=== PATIENT | female | born 1950 | race Caucasian/White ===

== ENCOUNTER 2021-04-03 00:21 | Day surgery (SDC) | payer MEDICARE, SELFPAY ==
[2021-03-21 09:37] VITALS: BMI 38.4
[2021-04-03] VITALS (8 sets, daily range): BP systolic 139–163; BP diastolic 72–89; PULSE 61–72; RESP 8–16; TEMP 36.1–36.2; O2SAT 92–100
[2021-04-03] MEDS: LACTATED RINGERS 1,000 ML 30 ML IV CONT (10:14)
--- NOTE | 2021-04-03 10:15 | WPDANESEPPF ---
Anes - Initial Pre Proc Eval Procedure: Operation Date: 04/03/21 11:30 Proposed Procedures p Bilateral Breast Reduction - Michael Vela MD Date/Time: 04/03/21 10:15 Surgeon: Michael Vela MD Pre Op Diagnosis: macromastia Patient Data Age: 71 Gender: F Height: 1.5 m Weight: 87.6 kg Last Vital Signs Temp 36.2 C L 04/03/21 09:53 Pulse 61 04/03/21 09:53 Resp 8 L 04/03/21 09:53 BP 148/72 H 04/03/21 09:53 Pulse Ox 100 04/03/21 09:53 Allergies Allergy/AdvReac Type Severity Reaction Status Date / Time Sulfa (Sulfonamide Allergy Severe BODY RASH Verified 04/03/21 10:01 Antibiotics) ibuprofen Allergy Mild ASTHMATIC Verified 04/03/21 10:01 REACTION prednisone Allergy Rash Verified 04/03/21 10:01 propoxyphene Allergy Gastrointestinal Verified 04/03/21 10:01 Upset salicylates Allergy Rash Verified 04/03/21 10:01 Home Medications Medication Instructions Recorded Confirmed Type acyclovir 800 mg tablet 800 mg PO DAILY 03/05/21 04/03/21 History aspirin 325 mg tablet 325 mg PO DAILY 03/05/21 04/03/21 History atorvastatin 10 mg tablet 10 mg PO DAILY 03/05/21 04/03/21 History bupropion HCl 75 mg tablet 75 mg PO BID 03/05/21 04/03/21 History duloxetine 60 mg capsule,delayed 60 mg PO DAILY 03/05/21 04/03/21 History release esomeprazole magnesium 20 mg 20 mg PO BID 03/05/21 04/03/21 History capsule,delayed release fluticasone furoate 100 1 inh INHALATION QAM 03/05/21 04/03/21 History mcg-vilanterol 25 mcg/dose inhalation powder fluticasone propionate 50 1 spray INTRANASAL DAILY 03/05/21 04/03/21 History mcg/actuation nasal spray,suspension metoprolol succinate 50 mg 50 mg PO BID 03/05/21 04/03/21 History tablet,extended release 24 hr tizanidine 4 mg capsule 4 mg PO QHS PRN 03/05/21 04/03/21 History tramadol 50 mg tablet 50 mg PO HS PRN 03/05/21 04/03/21 History trazodone 50 mg tablet 50 mg PO QHS PRN 03/05/21 04/03/21 History docusate sodium 100 mg capsule 100 mg PO BID #14 cap 03/19/21 04/03/21 Rx hydrocodone 5 mg-acetaminophen 325 1 tablet PO Q6H PRN #15 tablet 03/19/21 04/03/21 Rx mg tablet ondansetron HCl 4 mg tablet 4 mg PO Q6H PRN #30 tablet 03/19/21 04/03/21 Rx albuterol sulfate 2 puff INHALATION Q4H PRN 03/21/21 04/03/21 History diphenhydramine HCl [Benadryl 25 mg PO QID PRN 03/21/21 04/03/21 History Allergy] Laboratory Tests 04/03/21 10:10 Cotinine Pending Patient hx anesthesia problems: post op nausea/vomiting Family hx anesthesia problems: none Results Review: All pre-operative results and documents have been reviewed as part of the pre-operative evaluation. [facility] Past Medical History Medical History Acute arthritis Asthma Chronic back pain COPD (chronic obstructive pulmonary disease) History of Mohs micrographic surgery for skin cancer Hyperlipidemia Hypertension Surgical History Surgical History History of appendectomy History of bilateral carpal tunnel release History of foot surgery History of hip surgery History of implanted electronic device stimulation device in spine and hip - NO MRI History of knee replacement History of partial hysterectomy History of repair of rotator cuff History of tonsillectomy Family History Family History Father Heart disease Mother Hypertension Social History Social History Smoking status: Never smoker Second hand tobacco smoke exposure: No Alcohol intake: never Substance use: never Substance use type: does not use Living arrangements: with family Spiritual care concerns: No Anes - Eval Final PreProcedure Day of Procedure 04/03/21 10:15 Patient weight: obese Heart: regular rate and rhythm Lungs: decreased breat
[2021-04-03] MEDS: SCOPOLAMINE 1.5 MG PATCH TRANSDERM (10:21)
[2021-04-03 11:28] LABS: Urine Cotinine NEGATIVE
--- NOTE | 2021-04-03 11:49 | WPDHPUPDATE1 ---
History and Physical Update Update Date/Time: 04/03/21 11:49 History and Physical has been reviewed, including an updated exam of the patient. There are NO changes in the patient's condition. Risks, benefits, and alternatives have been discussed and questions answered. Patient agrees to proceed with procedure.
[2021-04-03] MEDS: ceFAZolin 2 GM/D5W 50 ML 2 GM/50 ML BAG IVPB (12:26)
[2021-04-03] MEDS: TRANEXAMIC ACID 1,000MG/ISO100 1,000 MG/100 ML BAG 200 MG IVPB (12:38)
[2021-04-03] MEDS: LACTATED RINGERS IRRIG 1,000 ML, LIDOCAINE HCL 1% LOCAL INJ 50 ML, EPINEPHrine HCL INJ ... INFILTRATE (12:57)
--- NOTE | 2021-04-03 13:57 | SUR.OPER ---
bilateral breast tissue given to zay in pathology by [facility] at [id number]
--- NOTE | 2021-04-03 14:35 | W.PM.PROC2 ---
Procedure Note - Detailed Date of Procedure 04/03/21 Pre-op Diagnosis macromastia Post-op Diagnosis same Procedure Performed Bilateral reduction mammaplasty Surgeon Michael Vela MD Anesthesia general Findings Inverted T Free nipple graft Tissue removed: Right - 1133 grams Left - 1374 grams Description of Procedure She is here today for bilateral breast reduction. Previously and again today the risks, benefits, alternatives were discussed in extensive detail. I wanted her to be very realistic about the risks involved as well as expectations. She would like to proceed with free nipple graft which has previously and again today been discussed. We discussed aftercare and what to monitor for. She understands we can never guarantee final breast size and there will always be asymmetry. I was very upfront and honest about the risks of sensation change and even nipple loss (). Made sure answered all of her questions to her satisfaction today and consent was obtained. She was marked in the preoperative holding area with their verification. The patient was taken to the operating room placed supine on the operating table. Anesthesia was provided by anesthesiology. She was prepped and draped in a standard sterile fashion. A surgical time-out was taken. Stab incisions were made and I tumessed with a tumescent solution. I marked out the nipple-areolar complex at 42 mm. This was excised deep to the dermis. A 15 blade was used to make the incisions and I then removed the inferior portion of the breast as well as the central keel to get shape based on preoperative planning. At this point copiously irrigated with saline solution and verified a strict hemostasis. I reapproximated the pillars using a 2-0 PDS. I tailor tacked the breast into place with lorraine. She was placed in a sitting position. I verified the nipple-areolar complex position based on preoperative markings, intraoperative measurements, and observation which were in full agreement. This nipple-areolar complex was marked at 42 mm in size. I closed IMF deep with 1 strattafix. I closed the vertical incision with 3-0 Monocryl in the IMF with 3-0 stratafix. Then everything was closed using a running subcuticular 4-0 Monocryl followed by Steri-Strips. I de-epithelialized the planned NAC location. Nipple-areolar complex was de-fatted and placed as a free nipple graft with 5-0 chromic and a xeroform cotton tie over bolster with 3-0 Nylon. A dressing was placed followed by surgical bra. Patient was awoke and taken to PACU without difficulty. All instrument sponge counts were correct at the end of the case. Estimated Blood Loss 30 Drains No Packing Yes (bolster dressing) Pathology yes (breast tissue) Complications No immediate complications Condition stable Disposition PACU
== END 2021-04-03 16:25 | disposition home or self-care (01) ==
PROVIDERS: PCP Internal Medicine; Visit Provider Surgery Plastic and Reconstructive Surgery
PROC: 0HBV0ZZ Excision of Bilateral Breast, Open Approach (ICD-10-PCS; CPT 19318; principal; 2021-04-03 11:30)
DX: N62 Hypertrophy of breast (principal); N60.32 Fibrosclerosis of left breast; N60.31 Fibrosclerosis of right breast; L82.1 Other seborrheic keratosis; M54.9 Dorsalgia, unspecified; G89.29 Other chronic pain; J44.9 Chronic obstructive pulmonary disease, unspecified; I10 Essential (primary) hypertension; E78.5 Hyperlipidemia, unspecified; Z79.51 Long term (current) use of inhaled steroids; Z79.899 Other long term (current) drug therapy; E66.9 Obesity, unspecified; Z68.39 Body mass index [BMI] 39.0-39.9, adult
CPT/HCPCS: 19318; 80307; 88305; A9270; J0171; J0690; J1170; J2250; J3010; J7120

== ENCOUNTER 2025-01-26 14:14 | Outpatient (CLI) | payer MEDICARE, SELFPAY ==
--- OUTSIDE RECORDS SUMMARY | 2025-01-26 14:21 | XMS_ITS | Encounter Summary ---
Author Organization [facility] Address [address] [place] [address] Care Team Providers Care Interactive Art Director Name Role Phone Unavailable Primary Care Provider Unavailabl e Encounter Details Date Type Department Care Team ( Contact Info) Description 01/26/2025 1:30 PM CDT Office Visit [facility] Oncology and Hematology - [place] [address] [facility] [address] [place] [address] Darell Gibbs MD [address] [facility] [address] [place] [address] Chronic anemia (Primary Dx) Social History Tobacco Use Types Packs/Day Years Used Date Smoking Tobacco: Never Smokeless Tobacco: Never Alcohol Use Standard Drinks/Week Comments Yes 0 (1 standard drink = 0.6 oz pur e alcohol) Socially Comments Unknown Sex and Gender Information Value Date Recorded Sex Assigned at Not on file Legal Sex Female 2:14 PM CDT Gender Identity Not on file Sexual Orientation Not on file documented as of this encounter Last Filed Vital Signs Vital Sign Reading Time Taken Comments Blood Pressure 99/57 01/26/2025 1:30 PM CDT Pulse 75 01/26/2025 1:30 PM CDT Temperature 36.1 C (96.9 F) 01/26/2025 1:30 PM CDT Respiratory Rate 16 01/26/2025 1:30 PM CDT Oxygen Saturation 94% 01/26/2025 1:30 PM CDT Inhaled Oxygen Concentration - - Weight 80.2 kg (176 lb 12.8 oz) 01/26/2025 1:30 PM CDT Height - - Body Mass Index - - documented in this encounter Plan of Treatment Upcoming Encounters Date Type Department Care Team (Late st Contact Info) Description 02/10/2025 4:30 PM CDT Telephone Check Up [facility] Oncology and Hematology - [place] [address] [facility] [address] [place] [address] Darell Gibbs MD [address] [facility] [address] [place] [address] Scheduled Orders Name Type Priority Associated Diagnoses Orde r Schedule CBC WITH DIFFERENTIAL Lab Stat Chronic anemia Expected: 01/26/2025, Expires: 01/26/2026 COMPREHENSIVE METABOLIC PANEL Lab Stat Chronic anemia Expected: 01/26/2025, Expires: 01/26/2026 FERRITIN Lab Routine Chronic anemia Expected: 01/26/2025, Expires: 01/26/2026 IRON, TIBC, AND PERCENT SATURATION Lab Routine Chronic anemia Expected: 01/26/2025, Expires: 01/26/2026 METHYLMALONIC ACID Lab Routine Chronic anemia Expected: 01/26/2025, Expires: 01/26/2026 TRANSFERRIN RECEPTOR TFR SOLUBLE Lab Routine Chronic anemia Expected: 01/26/2025, Expires: 01/26/2026 VITAMIN B12 AND FOLATE Lab Routine Chronic anemia Expected: 01/26/2025, Expires: 01/26/2026 ERYTHROPOIETIN LEVEL Lab Routine Chronic anemia Expected: 01/26/2025, Expires: 01/26/2026 documented as of this encounter Visit Diagnoses Diagnosis Chronic anemia- Primary Anemia, unspecified documented in this encounter
--- OUTSIDE RECORDS SUMMARY | 2025-01-26 14:21 | XMS_ITS | Clinical Summary ---
Author Organization [facility] Address [address] [address] [place] [address] Care Team Providers Care Dining Room Host Name Role Phone Unavailable Primary Care Provider Unavailabl e Allergies Active Allergy Reactions Criticality Noted Date Comments Ibuprofen Nausea and Vomiting Low 01/26/2025 Prednisone Rash Low 01/26/2025 Propoxyphene Nausea and Vomiting Low 01/26/2025 Salicylates Rash Low 01/26/2025 Sulfa (Sulfonamide Antibiotics) Rash Low 0811/2024 Medications acyclovir (ZOVIRAX) 800 mg tablet Take 800 mg by mouth. 12/29/2024 Active atorvastatin (LIPITOR) 40 mg tablet Take 40 mg by mouth daily at bedtime. 01/02/2025 Active DULoxetine (CYMBALTA) 60 mg Capsule, Delayed Release(E.C.) Take 60 mg by mouth daily. 11/19/2024 Active Ferrocite 324 mg (106 mg iron) Tablet Take 1 Tablet by mouth daily. 01/03/2025 Active HYDROcodone-acet aminophen (NORCO) 5-325 mg tablet take 1 tablet by mouth every 4 to 6 hours as needed for pain 12/09/2024 Active metoprolol succinate (TOPROL XL) 50 mg Extended Release 24 hour tablet Take 50 mg by mouth daily. 12/30/2024 Active oxyBUTYnin (DITROPAN XL) 5 mg Extended Release 24 hour tablet Take 5 mg by mouth daily. 12/06/2024 Active potassium CHLORIDE (KLOR-CON M10) 10 mEq Extended Release tablet Take 10 mEq by mouth daily. 11/01/2024 Active spironolactone (ALDACTONE) 25 mg tablet Take 25 mg by mouth daily. 12/30/2024 Active traMADol (ULTRAM) 50 mg tablet Take 50 mg by mouth 3 times daily as needed for Pain. 12/30/2024 Active traZODone (DESYREL) 50 mg tablet Take 50 mg by mouth. 12/30/2024 Active esomeprazole (NexIUM) 20 mg Capsule, Delayed Release(E.C.) Take 20 mg by mouth daily before breakfast. Active folic acid (FOLVITE) 1 mg tablet Take 1 mg by mouth daily. Active Active Problems No known active problems Encounters Date Type Department Care Team Description 01/26/2025 1:30 PM CDT Office Visit [facility] Oncology and Hematology - [place] [address] [place] [address] Darell Gibbs MD Chronic anemia (Primary Dx) from Last 3 Months Family History Medical History Relation Name Comments Diabetes Brother Heart Disease Brother No Known Problems Child 1 No Known Problems Child 2 Heart Disease Father Skin Cancer Father Blood Disorder Mother Heart Disease Mother Skin Cancer Mother Relation Name Status Comments Brother Alive Child 1 Alive Child 2 Alive Father Mother Social History Tobacco Use Types Packs/Day Years Used Date Smoking Tobacco: Never Smokeless Tobacco: Never Alcohol Use Standard Drinks/Week Comments Yes 0 (1 standard drink = 0.6 oz pur e alcohol) Socially Comments Unknown Sex and Gender Information Value Date Recorded Sex Assigned at Not on file Legal Sex Female 2:14 PM CDT Gender Identity Not on file Sexual Orientation Not on file Last Filed Vital Signs Vital Sign Reading [...] - - Body Mass Index - - Plan of Treatment Upcoming Encounters Date Type Department Care Team (Late st Contact Info) Description 02/10/2025 4:30 PM CDT Telephone Check Up [facility] Oncology and Hematology - [place] [address] [place] [address] Darell Gibbs MD [address] [facility] [address] [place] [address] Health Maintenance Due Date Last Done Comments DTAP/TDAP/TD VACCINES (1 - Tdap) 1969 Traditional Medicare (ACO) Annual Wellness Visit 03/29 PNEUMOCOCCAL VACCINE 50+ YEARS (1 of 1 - PCV) 03/29/19 98 ZOSTER VACCINE (1 of 2) 1998 OSTEOPOROSIS SCREENING 2013 RSV VACCINE (60+ or ) (1 - 1-dose 75+ series) 2023 INFLUENZA VACCINE (#1) 2025 Insurance [facility] SU[facility] Hospital
[2025-01-26 14:50] LABS: Hematocrit 39.0 % (37.0-47.0); Hemoglobin 12.8 g/dL (12.0-15.0); Immature Granulocyte Percent A 0.5 % (0-0.5); Lymphocytes Absolute Auto 1.67 K/mm3 (0.9-3.2); Mean Corpuscular HGB Conc 32.8 g/dl (32-36); Mean Corpuscular Hemoglobin 30.5 pg (26-34); Mean Corpuscular Volume 93.1 fl (80-100); Nucleated Red Blood Cells Absolute Auto 0.000 K/mm3 (0.0-0.012); Nucleated Red Blood Cells Perc 0.0 % (0.0-0.2); Platelet Count Result 232 k/mm3 (150-375); Red Blood Count 4.19 M/mm3 (4.2-5.4); White Blood Count 9.7 K/mm3 (4.5-10.0)
[2025-01-26 17:46] LABS: Alanine Aminotransferase 9 U/L (6-35); Albumin Level 4.2 g/dL (3.5-5.1); Alkaline Phosphatase 136 U/L (38-126); Anion Gap 10 mmol/L (4-12); Aspartate Amino Transferase 37 U/L (14-36); Bilirubin,Total 0.4 mg/dL (0.2-1.3); Blood Urea Nitrogen 17 mg/dL (7-17); Calcium 9.3 mg/dL (8.4-10.2); Carbon Dioxide 22 mmol/L (22-30); Chloride 103 mmol/L (98-107); Estimated Glomerular Filt Rate 37; Glucose 92 mg/dL (65-110); Potassium 4.5 mmol/L (3.4-5.0); Sodium 135 mmol/L (137-145); Total Protein 7.5 g/dL (6.3-8.2)
[2025-01-26 18:21] LABS: Ferritin 26.10 ng/mL (11.1-264)
[2025-01-26 18:59] LABS: Iron 80 ug/dL (37-170)
[2025-01-26 19:01] LABS: Vitamin B12 541.0 pg/mL (239-931)
[2025-01-26 19:08] LABS: Percent Iron Saturation 23 % (20-50)
== END 2025-01-26 14:15 | disposition home or self-care (01) ==
LOC: ANHLAB 14:17
PROVIDERS: PCP Internal Medicine; Visit Provider Internal Medicine Hematology & Oncology
DX: D64.9 Anemia, unspecified (principal)
CPT/HCPCS: 36415; 80053; 82607; 82668; 82728; 82746; 83540; 83550; 83921; 84238; 85025

== ENCOUNTER 2025-06-14 10:21 | Outpatient (CLI) | payer MEDICARE, SELFPAY ==
[2025-06-14 10:41] LABS: Hematocrit 37.4 % (37.0-47.0); Hemoglobin 12.4 g/dL (12.0-15.0); Immature Granulocyte Percent A 0.6 % (0-0.5); Lymphocytes Absolute Auto 1.58 K/mm3 (0.9-3.2); Mean Corpuscular HGB Conc 33.2 g/dl (32-36); Mean Corpuscular Hemoglobin 32.1 pg (26-34); Mean Corpuscular Volume 96.9 fl (80-100); Nucleated Red Blood Cells Absolute Auto 0.000 K/mm3 (0.0-0.012); Nucleated Red Blood Cells Perc 0.0 % (0.0-0.2); Platelet Count Result 227 k/mm3 (150-375); Red Blood Count 3.86 M/mm3 (4.2-5.4); White Blood Count 9.1 K/mm3 (4.5-10.0)
--- OUTSIDE RECORDS SUMMARY | 2025-06-14 11:02 | XMS_ITS | Encounter Summary ---
Author Organization [facility] Address [facility] [place] [address] Care Team Providers Care Crm Marketing Manager Name Role Phone Danny Castano MD Primary Care Provider U Elizabeth Ash MD Primary Care Provider Encounter Details Date Type Department Care Team (Late st Contact Info) Description 01/28/2022 Apruve Message [facility] [address] [place] [phone] Topher Willis MD [address] [address] Blood pressure. Social History Tobacco Use Types Packs/Day Years Used Date Smoking Tobacco: Never Smokeless Tobacco: Never Alcohol Use Standard Drinks/Week Comments No 0 (1 standard drink = 0.6 oz pur e alcohol) AUDIT-C Answer Date Recorded Frequency of Alcohol Consumption Never 05/19/2018 Average Number of Drinks Not on file 018 Frequency of Binge Drinking Not on file 04/24 PHQ-2 Answer Date Recorded PHQ-2 Score - If the patient scores above 3, please move on to questions 3-9 1 10/05/2021 Education Answer Date Recorded What is the highest level of school you have completed or the highest degree you have received? Some college, no degree 06/29/2018 Comments No Sex and Gender Information Value Date Recorded Sex Assigned at Female 06/19/2018 10:09 AM DIRECTOR SELECTION AND ADMINISTRATION Legal Sex Female 10:52 PM CDT Gender Identity Female 06/19/2018 10:09 AM DIRECTOR SELECTION AND ADMINISTRATION Sexual Orientation Not on file COVID-19 Exposure Response Date Recorded In the last 10 days, have yo u been in contact with someone who was confirmed or suspected to have Coronavirus/COVID-19? No / Unsure 01/24/2022 10:53 AM CDT documented as of this encounter Progress Notes * Jesusita Richardson RN - 01/29/2022 8:31 AM CDT disregard documented in this encounter Plan of Treatment Upcoming Encounters Date Type Department Care Team (Late st Contact Info) Description 06/30/2025 10:00 AM DIRECTOR SELECTION AND ADMINISTRATION Office Visit [facility] Multispecialty Care - [address], [facility] [address] [place] [address] Sofiya Nicole MD [address] [place] [address], [facility] [address] [place] [address] 07/01/2025 11:00 AM DIRECTOR SELECTION AND ADMINISTRATION Office Visit [facility] Family & Internal Medicine - [place] [address] [place] [address] [place] [address] [facility] [place], [place] [phone] 11/07/2025 9:45 AM CDT Office Visit [facility] [id number] [place] [phone] Topher Willis MD [facility]. [facility] [address] [place] [address] 02/14/2026 9:00 AM CDT Office Visit [facility] Pulmonology Specialty Clinic - [address] [phone] Hossein Raltiff MD [address] [place] [address] documented as of this encounter Visit Diagnoses Not on filedocumented in this encounter Additional Health Concerns Assessment Noted Time PHQ-9 Depression Total Score: 3 10/13/19 21 11:58 AM CDT documented as of this encounter Care Teams Crm Marketing Manager Relationship Specialty Start Date End Date Danny Castano MD PCP - General 06/19/15 08/13/22 [place] [address] [place] [address] PCP - General FAMILY PRACTICE 08/14/22 documented as of this encounter
--- OUTSIDE RECORDS SUMMARY | 2025-06-14 11:02 | XMS_ITS | Encounter Summary ---
Author Organization [facility] Address [address] [place] [address] Care Team Providers Care Welding Pantograph Operator Name Role Phone Danny Castano MD Primary Care Provider U Elizabeth Ash MD Primary Care Provider [phone] Encounter Details Date Type Department Care Team (Late st Contact Info) Description 02/11/2022 Analizat Message Enc [facility] Family & Internal Medicine [address] [address] Danny Castano MD Vitamin D Social History Tobacco Use Types Packs/Day Years [...] Sex Assigned at Female 06/19/2018 10:09 AM SUPERINTENDENT PIPELINES Legal Sex Female 10:52 PM CDT Gender Identity Female 06/19/2018 10:09 AM SUPERINTENDENT PIPELINES Sexual Orientation Not on file COVID-19 Exposure Response Date Recorded In the last 10 days, have yo u been in contact with someone who was confirmed or suspected to have Coronavirus/COVID-19? No / Unsure 01/24/2022 10:53 AM CDT documented as of this encounter Plan of Treatment Upcoming Encounters Date Type Department Care Team (Late st Contact Info) Description 06/30/2025 10:00 AM SUPERINTENDENT PIPELINES Office Visit [facility] Multispecialty Care - [facility] [address] [facility], [facility] [address] [place] [address] Sofiya Nicole MD 3 [facility], [facility] [address] [place] [address] 07/01/2025 11:00 AM SUPERINTENDENT PIPELINES Office Visit [facility] Family & Internal Medicine [place] [id number] [place] [phone] Elizabeth Tello MD [address] [place] [phone] 11/07/2025 9:45 AM CDT Office Visit [place] [address] [phone] Topher Willis MD [address] [facility]. [facility] [address] [place] [address] 02/14/2026 9:00 AM CDT Office Visit [facility] Pulmonology Specialty Clinic - [address] [address] Hossein Ratliff MD [address] [facility] [address] [place] [address] documented as of this encounter Visit Diagnoses Not on filedocumented in this encounter Additional Health Concerns Assessment Noted Time PHQ-9 Depression Total Score: 3 10/13/19 21 11:58 AM CDT documented as of this encounter Care Teams Welding Pantograph Operator Relationship Specialty Start Date End Date Danny Castano MD PCP - General 06/19/15 08/13/22 [place] [address] [address] [place] [address] PCP - General FAMILY PRACTICE 08/14/22 documented as of this encounter
--- OUTSIDE RECORDS SUMMARY | 2025-06-14 11:02 | XMS_ITS | Encounter Summary ---
Author Organization [facility] Address [address] [place] [address] Care Team Providers Care Blunger Loader Name Role Phone Danny Castano MD Primary Care Provider U Elizabeth Ash MD Primary Care Provider [phone] Encounter Details Date Type Department Care Team (Late st Contact Info) Description 11/29/2021 Heartbeatt Message Enc [facility] Medical Group Family & Internal Medicine [address] [address] Danny Castano MD Blood test Social History Tobacco Use Types Packs/Day Years [...] Sex Assigned at Female 06/19/2018 10:09 AM STEEL RULE DIE MAKER Legal Sex Female 10:52 PM CDT Gender Identity Female 06/19/2018 10:09 AM STEEL RULE DIE MAKER Sexual Orientation Not on file COVID-19 Exposure Response Date Recorded In the last 10 days, have yo u been in contact with someone who was confirmed or suspected to have Coronavirus/COVID-19? No / Unsure 11/29/2021 10:30 AM CDT documented as of this encounter Plan of Treatment Upcoming Encounters Date Type Department Care Team (Late st Contact Info) Description 06/30/2025 10:00 AM STEEL RULE DIE MAKER Office Visit [facility] Multispecialty Care - [facility] 3 [facility], [facility] [address] [place] [address] Sofiya Nicole MD 3 [facility], [facility] [address] [place] [address] 07/01/2025 11:00 AM STEEL RULE DIE MAKER Office Visit [facility] Family & Internal Medicine [place] [id number] [place] [phone] Elizabeth Tello MD [address] [place] [address] 11/07/2025 9:45 AM CDT Office Visit [facility] [address] [phone] Topher Willis MD Three [facility]. [facility] [address] [place] [address] 02/14/2026 9:00 AM CDT Office Visit [facility] Pulmonology Specialty Clinic - [address] [address] Hossein Ratliff MD 3[address] [facility] [address] [place] [address] documented as of this encounter Visit Diagnoses Not on filedocumented in this encounter Additional Health Concerns Assessment Noted Time PHQ-9 Depression Total Score: 3 10/13/19 21 11:58 AM CDT documented as of this encounter Care Teams Blunger Loader Relationship Specialty Start Date End Date Danny Castano MD PCP - General 06/19/15 08/13/22 [place] [address] [address] [place] [address] PCP - General FAMILY PRACTICE 08/14/22 documented as of this encounter
--- OUTSIDE RECORDS SUMMARY | 2025-06-14 11:02 | XMS_ITS | Encounter Summary ---
Author Organization [facility] Address [address] [place] [address] Care Team Providers Care Cell Inspector Name Role Phone Danny Castano MD Primary Care Provider U Elizabeth Ash MD Primary Care Provider [phone] Encounter Details Date Type Department Care Team (Late st Contact Info) Description 09/18/2016 Abstract [facility] CONVERSION [address] [place] [address] , Generic ConversionMD Social History Tobacco Use Types Packs/Day Years Used Date Smoking Tobacco: Never Assessed Comments Unknown Sex and Gender Information Value Date Recorded Sex Assigned at Female 06/19/2018 10:09 AM ORNAMENTAL IRON WORKER APPRENTICE Legal Sex Female 10:52 PM CDT Gender Identity Female 06/19/2018 10:09 AM ORNAMENTAL IRON WORKER APPRENTICE Sexual Orientation Not on file documented as of this encounter Plan of Treatment Upcoming Encounters Date Type Department Care Team (Late Contact Info) Description 06/30/2025 10:00 AM ORNAMENTAL IRON WORKER APPRENTICE Office Visit [facility] Multispecialty Care - [address] [phone] Sofiya Nicole MD [address] [place] [address] 07/01/2025 11:00 AM ORNAMENTAL IRON WORKER APPRENTICE Office Visit [facility] Medical [facility] Family & Internal Medicine - [place] [address] [place] [phone] [place] [address] [address] [place] [address] 11/07/2025 9:45 AM CDT Office Visit [facility] [address] [place] [address] Topher Willis MD Three [facility]. [facility] [address] [place] [address] 02/14/2026 9:00 AM CDT Office Visit [facility] Medical Group Pul[facility]ology Specialty Clinic - [address] [phone] Hossein Ratliff MD 3rd [facility] [address] [place] [address] documented as of this encounter Visit Diagnoses Not on filedocumented in this encounter Additional Health Concerns Infection Onset Date Last Indicated Resolved Time COVID-19 Rule Out 02/29/2020 02/29/2020 03/02/2020 2:26 AM CDT COVID-19 Rule Out 04/29/2020 04/29/2020 04/30/2020 7:11 PM ORNAMENTAL IRON WORKER APPRENTICE COVID-19 Rule Out 04/21/2021 04/21/2021 04/22/2021 12:00 PM CDT documented as of this encounter Care Teams Cell Inspector Relationship Specialty Start Date End Date Danny Castano MD PCP - General 06/19/15 08/13/22 [place] [address] [address] [place] [address] PCP - General FAMILY PRACTICE 08/14/22 documented as of this encounter
--- OUTSIDE RECORDS SUMMARY | 2025-06-14 11:02 | XMS_ITS | Encounter Summary ---
Author Organization [facility] Address [address] [place] [address] Care Team Providers Care Clerk Television Production Name Role Phone Danny Castano MD Primary Care Provider U Elizabeth Ash MD Primary Care Provider [phone] Encounter Details Date Type Department Care Team (Late st Contact Info) Description 03/05/2022 Holographic Projection for Architecturet Message Enc [facility] Medical Group [facility] [address] [address] Hossein Ratliff MD [address] [place] [address] Cough Social History Tobacco Use Types Packs/Day Years [...] Sex Assigned at Female 06/19/2018 10:09 AM CUSTOMER SERVICE AND SALES CONSULTANT Legal Sex Female 10:52 PM CDT Gender Identity Female 06/19/2018 10:09 AM CUSTOMER SERVICE AND SALES CONSULTANT Sexual Orientation Not on file COVID-19 Exposure Response Date Recorded In the last 10 days, have yo u been in contact with someone who was confirmed or suspected to have Coronavirus/COVID-19? No / Unsure 03/07/2022 10:43 AM CDT documented as of this encounter Plan of Treatment Upcoming Encounters Date Type Department Care Team (Late st Contact Info) Description 06/30/2025 10:00 AM CUSTOMER SERVICE AND SALES CONSULTANT Office Visit [facility] Multispecialty Care - [facility] 3 [facility], [facility] [address] [place] [address] Sofiya Nicole MD 3 [facility], [facility] [address] [place] [address] 07/01/2025 11:00 AM CUSTOMER SERVICE AND SALES CONSULTANT Office Visit [facility] Family & Internal Medicine - [place] [address] [place] [phone] [place] [address] [facility]. [address] [place] [address] 11/07/2025 9:45 AM CDT Office Visit [facility] [phone] [place] [phone] Topher Willis MD Three [facility]. [place] [address] [place] [address] 02/14/2026 9:00 AM CDT Office Visit [facility] Pul[facility]ology Specialty Clinic - [address] [phone] Hossein Ratliff MD 3rd [facility] [place] [address] [place] [address] documented as of this encounter Visit Diagnoses Not on filedocumented in this encounter Additional Health Concerns Assessment Noted Time PHQ-9 Depression Total Score: 3 10/13/19 21 11:58 AM CDT documented as of this encounter Care Teams Clerk Television Production Relationship Specialty Start Date End Date Danny Castano MD PCP - General 06/19/15 08/13/22 [place] [address] [facility] [address] [place] [address] PCP - General FAMILY PRACTICE 08/14/22 documented as of this encounter
--- OUTSIDE RECORDS SUMMARY | 2025-06-14 11:02 | XMS_ITS | Encounter Summary ---
Author Organization [facility] Address [address] [place] [address] Care Team Providers Care Director Operating Name Role Phone Danny Castano MD Primary Care Provider U Elizabeth Ash MD Primary Care Provider [phone] Encounter Details Date Type Department Care Team (Late st Contact Info) Description 07/05/2021 DalloulNW Message Enc [facility] Medical Group Family & Internal Medicine [facility] [phone] [place] [phone] [employer], [facility] Provider medicaiton Social History Tobacco Use Types Packs/Day Years [...] please move on to questions 3-9 1 10/12/2020 Education Answer Date Recorded What is the highest level of school you have completed or the highest degree you have received? Some college, no degree 06/29/2018 Comments No Sex and Gender Information Value Date Recorded Sex Assigned at Female 06/19/2018 10:09 AM REINSURANCE CLAIMS ANALYST Legal Sex Female 10:52 PM CDT Gender Identity Female 06/19/2018 10:09 AM REINSURANCE CLAIMS ANALYST Sexual Orientation Not on file COVID-19 Exposure Response Date Recorded In the last month, have you been in contact with someone who was confirmed or suspected to have Coronavirus / COVID-19? No / Unsure 06/05/2021 9:51 AM REINSURANCE CLAIMS ANALYST documented as of this encounter Plan of Treatment Upcoming Encounters Date Type Department Care Team (Late st Contact Info) Description 06/30/2025 10:00 AM REINSURANCE CLAIMS ANALYST Office Visit [facility] Multispecialty Care - [facility] 3 [facility], [facility] [address] [place] [address] Sofiya Nicole MD 3 [facility], [facility] [address] [place] [address] 07/01/2025 11:00 AM REINSURANCE CLAIMS ANALYST Office Visit [facility] Family & Internal Medicine [facility] [address] [place] [phone] Elizabeth Tello MD [address] [place] [address]. [address] [place], [place] [phone] 11/07/2025 9:45 AM CDT [facility] [address] [place] [phone] Topher Willis MD Three [facility]. [facility] [address] [place] [address] 02/14/2026 9:00 AM CDT Office Visit [facility] Pul[facility]ology Specialty Clinic - [address] [phone] Hossein Ratliff MD 3rd [facility] [place] [address] [place] [address] documented as of this encounter Visit Diagnoses Not on filedocumented in this encounter Additional Health Concerns Assessment Noted Time PHQ-9 Depression Total Score: 3 10/13/19 21 11:58 AM CDT documented as of this encounter Care Teams Director Operating Relationship Specialty Start Date End Date Danny Castano MD PCP - General 06/19/15 08/13/22 [place] [address] [address] [place] [address] PCP - General FAMILY PRACTICE 08/14/22 documented as of this encounter
--- OUTSIDE RECORDS SUMMARY | 2025-06-14 11:02 | XMS_ITS | Encounter Summary ---
Author Organization [facility] Address [address] [place] [address] Care Team Providers Care Emergency Room Doctor Name Role Phone Danny Castano MD Primary Care Provider U Elizabeth Ash MD Primary Care Provider [phone] Encounter Details Date Type Department Care Team (Late st Contact Info) Description 03/04/2022 [email or web address] Message Enc [facility] Medical Group [facility] [address] [address] Hossein Ratliff MD [address] [place] [address] Trelegy Social History Tobacco Use Types Packs/Day Years [...] Sex Assigned at Female 06/19/2018 10:09 AM MACHINIST MATE Legal Sex Female 10:52 PM CDT Gender Identity Female 06/19/2018 10:09 AM MACHINIST MATE Sexual Orientation Not on file COVID-19 Exposure Response Date Recorded In the last 10 days, have yo u been in contact with someone who was confirmed or suspected to have Coronavirus/COVID-19? No / Unsure 03/07/2022 10:43 AM CDT documented as of this encounter Plan of Treatment Upcoming Encounters Date Type Department Care Team (Late st Contact Info) Description 06/30/2025 10:00 AM MACHINIST MATE Office Visit [facility] Multispecialty Care - [facility] 3 [facility], [place] [address] [place] [address] Sofiya Nicole MD 3 [facility], [place] [address] [place] [address] 07/01/2025 11:00 AM MACHINIST MATE Office Visit [facility] Family & Internal Medicine - [place] [address] [place] [address] Elizabeth Tello MD [address] [place] [address]. [address] [place] [address] 11/07/2025 9:45 AM CDT Office Visit [facility] [phone] Topher Willis MD Three [facility]. [place] [address] [place] [address] 02/14/2026 9:00 AM CDT Office Visit [facility] Pulmonology Specialty Clinic - [address] [phone] Hossein Ratliff MD 3rd [facility] [place] [address] [place] [address] documented as of this encounter Visit Diagnoses Not on filedocumented in this encounter Additional Health Concerns Assessment Noted Time PHQ-9 Depression Total Score: 3 10/13/19 21 11:58 AM CDT documented as of this encounter Care Teams Emergency Room Doctor Relationship Specialty Start Date End Date Danny Castano MD PCP - General 06/19/15 08/13/22 [place] [address] [facility]. [address] [place] [address] PCP - General FAMILY PRACTICE 08/14/22 documented as of this encounter
--- OUTSIDE RECORDS SUMMARY | 2025-06-14 11:02 | XMS_ITS | Encounter Summary ---
Author Organization [facility] Address [address] [place] [address] Care Team Providers Care Abrasive Mixer Helper Name Role Phone Danny Castano MD Primary Care Provider U Elizabeth Ash MD Primary Care Provider [phone] Encounter Details Date Type Department Care Team (Late st Contact Info) Description 01/28/2022 BoosterMedia Message [facility] [address] [place] [phone] Topher Willis MD [address] [address] Blood Pressure Social History Tobacco Use Types Packs/Day Years [...] Sex Assigned at Female 06/19/2018 10:09 AM JEWISH THOUGHT PROFESSOR Legal Sex Female 10:52 PM CDT Gender Identity Female 06/19/2018 10:09 AM JEWISH THOUGHT PROFESSOR Sexual Orientation Not on file COVID-19 Exposure Response Date Recorded In the last 10 days, have yo u been in contact with someone who was confirmed or suspected to have Coronavirus/COVID-19? No / Unsure 01/24/2022 10:53 AM CDT documented as of this encounter Progress Notes * Jesusita Richardson RN - 01/29/2022 8:31 AM CDT Is there a log somewhere downstairs in clinic? documented in this encounter Plan of Treatment Upcoming Encounters Date Type Department Care Team (Late st Contact Info) Description 06/30/2025 10:00 AM JEWISH THOUGHT PROFESSOR Office Visit [facility] Multispecialty [facility] - [address], [facility] [address] [place] [address] Sofiya Nicole MD [address] [place] [place] [address], [place] [address] [place] [address] 07/01/2025 11:00 AM JEWISH THOUGHT PROFESSOR Office Visit [facility] Family & Internal Medicine - [address] [address] Elizabeth Tello MD [address] [place] [address]. [address] [place], [place] [phone] 11/07/2025 9:45 AM CDT Office Visit [facility] [phone] Topher Willis MD [facility]. [place] [address] [place] [address] 02/14/2026 9:00 AM CDT Office Visit [facility] Pulmonology Specialty Clinic - [address] [place] [phone] Hossein Ratliff MD [address] [place] [address] documented as of this encounter Visit Diagnoses Not on filedocumented in this encounter Additional Health Concerns Assessment Noted Time PHQ-9 Depression Total Score: 3 10/13/19 21 11:58 AM CDT documented as of this encounter Care Teams Abrasive Mixer Helper Relationship Specialty Start Date End Date Danny Castano MD PCP - General 06/19/15 08/13/22 [place] [address] [address] [place] [address] PCP - General FAMILY PRACTICE 08/14/22 documented as of this encounter
--- OUTSIDE RECORDS SUMMARY | 2025-06-14 11:02 | XMS_ITS | Encounter Summary ---
Author Organization [facility] Address [address] [place] [address] Care Team Providers Care Salesperson Children[employer] Shoes Name Role Phone Elizabeth Tello MD Primary Care Provider [phone] Encounter Details Date Type Department Care Team (Late st Contact Info) Description 12/18/2022 Codealikehart Message Enc [facility] Medical Group - [facility] [address] [place], [place] [phone] [place], [facility] Provider Air Quality Message Social History Tobacco Use Types Packs/Day Years Used Date Smoking Tobacco: Never Smokeless Tobacco: Never Alcohol Use Standard Drinks/Week Comments No 0 (1 standard drink = 0.6 oz pur e alcohol) AUDIT-C Answer Date Recorded Frequency of Alcohol Consumption Never 05/19/2018 Average Number of Drinks Not on file 018 Frequency of Binge Drinking Not on file 04/24 PHQ-2 Answer Date Recorded Patient Health Questionnaire-2 Score 0 11/07/2022 Education Answer Date Recorded What is the highest level of school you have completed or the highest degree you have received? Some college, no degree 06/29/2018 Comments No Sex and Gender Information Value Date Recorded Sex Assigned at Female 06/19/2018 10:09 AM INDUSTRIAL HYGIENIST Legal Sex Female 10:52 PM CDT Gender Identity Female 06/19/2018 10:09 AM INDUSTRIAL HYGIENIST Sexual Orientation Not on file COVID-19 Exposure Response Date Recorded In the last 10 days, have yo u been in contact with someone who was confirmed or suspected to have Coronavirus/COVID-19? No / Unsure 12/03/2022 9:20 AM CDT documented as of this encounter Plan of Treatment Upcoming Encounters Date Type Department Care Team (Late st Contact Info) Description 06/30/2025 10:00 AM INDUSTRIAL HYGIENIST Office Visit [facility] Multispecialty Care - [facility] 3 [facility], [facility] [address] [place] [address] Sofiya Nicole MD 3 [facility], [facility] [address] [place] [address] 07/01/2025 11:00 AM INDUSTRIAL HYGIENIST Office Visit [facility] Family & Internal Medicine - [place] [address] [place] [phone] [place] [address] [facility]. [address] [place] [address] 11/07/2025 9:45 AM CDT Office Visit [facility] [address] [place] [phone] Topher Willis MD Three [facility]. [facility] [address] [place] [address] 02/14/2026 9:00 AM CDT Office Visit [facility] Pulmonology Specialty Clinic - [address] [phone] Hossein Ratliff MD 3rd [facility] [address] [place] [address] documented as of this encounter Visit Diagnoses Not on filedocumented in this encounter Additional Health Concerns Assessment Noted Time PHQ-9 Depression Total Score: 3 10/13/19 21 11:58 AM CDT documented as of this encounter Care Teams Salesperson [employer] Relationship Specialty [place] [address] [facility]. [address] [place] [address] PCP - General FAMILY PRACTICE 08/14/22 documented as of this encounter
--- OUTSIDE RECORDS SUMMARY | 2025-06-14 11:02 | XMS_ITS | Encounter Summary ---
Author Organization [facility] Address [address] [place] [address] Care Team Providers Care Correctional Facility Nurse Name Role Phone Elizabeth Tello MD Primary Care Provider [phone] Encounter Details Date Type Department Care Team (Late st Contact Info) Description 10/08/2022 Prep for Procedure [facility] [address] [place] [address] Go Arevalo MD [address] [place] [id number] Social History Tobacco Use Types Packs/Day Years [...] Date Recorded Patient Health Questionnaire-2 Score 0 08/06/2022 Education Answer Date Recorded What is the highest level of school you have completed or the highest degree you have received? Some college, no degree 06/29/2018 Comments No Sex and Gender Information Value Date Recorded Sex Assigned at Female 06/19/2018 10:09 AM CLOTH WINDING SUPERVISOR Legal Sex Female 10:52 PM CDT Gender Identity Female 06/19/2018 10:09 AM CLOTH WINDING SUPERVISOR Sexual Orientation Not on file COVID-19 Exposure Response Date Recorded In the last 10 days, have yo u been in contact with someone who was confirmed or suspected to have Coronavirus/COVID-19? No / Unsure 10/09/2022 8:22 AM CDT documented as of this encounter Plan of Treatment Upcoming Encounters Date Type Department Care Team (Late st Contact Info) Description 06/30/2025 10:00 AM CLOTH WINDING SUPERVISOR Office Visit [facility] Multispecialty Care - [facility] 3 [facility], [facility] [address] [place] [address] Sofiya Nicole MD 3 [facility], [facility] [address] [place] [address] 07/01/2025 11:00 AM CLOTH WINDING SUPERVISOR Office Visit [facility] Family & Internal Medicine [place] [phone] [place] [phone] Elizabeth Tello MD [address] [place] [address] [phone] 11/07/2025 9:45 AM CDT Office Visit [facility] [phone] Topher Willis MD Three [facility]. [facility] [address] [place] [address] 02/14/2026 9:00 AM CDT Office Visit [facility] Pulmonology Specialty Clinic - [address] [phone] Hossein Ratliff MD 3rd [facility] [address] [place] [address] documented as of this encounter Results * ECG 12-Lead (10/09/2022 9:55 AM CDT) 10/09/2022 9:55 AM CDT Narrative [facility] RAD - 10/10/2022 8:[address] [facility] Test Date: 2022-10-09 Pat Name: GM HERNANDEZ Department: 85 Room: Gender: Female Driver Education Road Instructor: : 1950 Requested By: GO AREVALO Order Number: [id number] Keyla FERGUSON: Ceasar Ferris Measurements Intervals [place] Rate: 58 P: 73 TX: 169 QRS: -20 QRSD: 88 T: 12 QT: 422 QTc: 415 Interpretive Statements SINUS BRADYCARDIA MINIMAL ST DEPRESSION [0.025+ mV ST DEPRESSION] Compared to ECG 03/26/2021 11:13:15 ST (T wave) deviation now present T-wave abnormality no longer present Procedure Note Ceasar Ferris MD - [facility] Date: 2022-10-09 Pat Name: GM HERNANDEZ Department: 85 Room: Gender: Female Driver Education Road Instructor: : 1950 Requested By: GO AREVALO Order Number: [id number] Keyla FERGUSON: Ceasar Ferris Measurements Intervals [place] Rate: 58 P: 73 TX: 169 QRS: -20 QRSD: 88 T: 12 QT: 422 QTc: 415 Interpretive Statements SINUS BRADYCARDIA MINIMAL ST DEPRESSION [0.025+ mV ST DEPRESSION] Compared to ECG 03/26/2021 11:13:15 ST (T wave) deviation now present T-wave abnormality no longer present us Go Arevalo MD ECG ORDERABLES Final Result [facility] RAD documented in this encounter Visit Diagnoses Diagnosis Preop testing- Primary Preoperative examination, unspecified Preop testing Preoperative examination, unspecified documented in this encounter Additional Health Concerns Assessment Noted Time PHQ-9 Depression Total Score: 3 10/13/19 21 11:58 AM CDT documented as of this encounter Care Teams Correctional Facility Nurse Relationship Specialty [place] [address] [address] [place] [address] PCP - General FAMILY PRACTICE 08/14/22 documented as of this encounter
--- OUTSIDE RECORDS SUMMARY | 2025-06-14 11:02 | XMS_ITS | Encounter Summary ---
Author Organization [facility] Address [address] [place] [address] Care Team Providers Care Firewood Cutter Name Role Phone Danny Castano MD Primary Care Provider U Elizabeth Ash MD Primary Care Provider [phone] Encounter Details Date Type Department Care Team (Late st Contact Info) Description 05/06/2022 watAgame Message [facility] [address] [place] [phone] Topher Willis MD [address] [address] Ampodipine Besylate 5MG Tabets Social History Tobacco Use Types Packs/Day Years [...] Sex Assigned at Female 06/19/2018 10:09 AM CORE STICKER Legal Sex Female 10:52 PM CDT Gender Identity Female 06/19/2018 10:09 AM CORE STICKER Sexual Orientation Not on file documented as of this encounter Plan of Treatment Upcoming Encounters Date Type Department Care Team (Late st Contact Info) Description 06/30/2025 10:00 AM CORE STICKER Office Visit [facility] Multispecialty Care - [facility] 3 [facility], [facility] [address] [place] [address] Sofiya Nicole MD 3 [facility], [facility] [address] [place] [address] 07/01/2025 11:00 AM CORE STICKER Office Visit [facility] Family & Internal Medicine - [place] [address] [place] [address] [place] [address] [place] [address] [phone] 11/07/2025 9:45 AM CDT Office Visit [facility] [address] [place] [phone] Topher Willis MD Three [facility]. [facility] [address] [place] [address] 02/14/2026 9:00 AM CDT Office Visit [facility] Pulmonology Specialty Clinic - [address] [phone] Hossein Ratliff MD 3rd [facility] [address] [place] [address] documented as of this encounter Visit Diagnoses Not on filedocumented in this encounter Additional Health Concerns Assessment Noted Time PHQ-9 Depression Total Score: 3 10/13/19 21 11:58 AM CDT documented as of this encounter Care Teams Firewood Cutter Relationship Specialty Start Date End Date Danny Castano MD PCP - General 06/19/15 08/13/22 [place] [address] [address] [place] [address] PCP - General FAMILY PRACTICE 08/14/22 documented as of this encounter
--- OUTSIDE RECORDS SUMMARY | 2025-06-14 11:02 | XMS_ITS | Clinical Summary ---
Author Organization [facility] Theo Melokern valleyshi Address [address] [place] [address] Care Team Providers Care Chief Port Director Name Role Phone Unavailable Primary Care Provider Unavailabl e Allergies Active Allergy Reactions Criticality Noted Date Comments Ibuprofen Nausea and Vomiting Low 01/26/2025 Prednisone Rash Low 01/26/2025 Propoxyphene Nausea and Vomiting Low 01/26/2025 Salicylates Rash Low 01/26/2025 Sulfa (Sulfonamide Antibiotics) Rash Low 08/11/2024 Medications acyclovir (ZOVIRAX) 800 mg tablet Take [...] Encounters Date Type Department Care Team Description 04/13/2025 External Device Data STL ABSTRACTION Provider, Abstract 03/15/2025 External Device Data STL ABSTRACTION Provider, Abstract 03/15/2025 External Device Data ST[facility] ABSTRACTION Provider, Abstract 03/15/2025 External Device Data STL ABSTRACTION Provider, Abstract from Last 3 Months Family History Medical [...] Care Team (Late st Contact Info) Description 06/27/2025 11:45 AM PROFESSOR OF POLITICAL SCIENCE Office Visit [facility] Oncology and Hematology - [place] [address] [place] [address] Darell Gibbs MD [address] [facility] [address] [place] [address] Health Maintenance Due Date Last Done Comments OSTEOPOROSIS SCREENING 2013 RSV VACCINE (60+ or ) (1 - 1-dose 75+ series) 2023 INFLUENZA VACCINE (#1) 2025 , 04/09/2022, 04/26/2021, Additional history exists COVID-19 Vaccine (2024-2 6 season) 2025 02/13/2022, 04/26/2021, 08/30/2020, Additional history exists DTAP/TDAP/TD VACCINES (2 - T d or Tdap) 11/30/2030 11/30/2020, 12/04/2002 PNEUMOCOCCAL VACCINE 50+ YEARS Completed 1 07/01/2016, 08/02/2015, 04/19/2015 ZOSTER VACCINE Completed 09/27/2020, 03/24, 11/27/2009 Insurance MEDICARE PART A AND B [facility] SUPP
--- OUTSIDE RECORDS SUMMARY | 2025-06-14 11:02 | XMS_ITS | Encounter Summary ---
Author Organization [facility] Address [address] [place] [address] Care Team Providers Care Machinery Erector Name Role Phone Danny Castano MD Primary Care Provider U Elizabeth Ash MD Primary Care Provider [phone] Encounter Details Date Type Department Care Team (Late st Contact Info) Description 07/25/2021 [employer] Message Enc [place] [facility] THREE [facility], [address] [address] [employer], [facility] Provider echo results Social History Tobacco Use Types Packs/Day Years [...] Sex Assigned at Female 06/19/2018 10:09 AM CLEARING DISTRIBUTION CLERK Legal Sex Female 10:52 PM CDT Gender Identity Female 06/19/2018 10:09 AM CLEARING DISTRIBUTION CLERK Sexual Orientation Not on file COVID-19 Exposure Response Date Recorded In the last month, have you been in contact with someone who was confirmed or suspected to have Coronavirus / COVID-19? No / Unsure 07/23/2021 9:53 AM CLEARING DISTRIBUTION CLERK documented as of this encounter Plan of Treatment Upcoming Encounters Date Type Department Care Team (Late st Contact Info) Description 06/30/2025 10:00 AM CLEARING DISTRIBUTION CLERK Office Visit [facility] 3 [facility], [facility] [address] [place] [address] Sofiya Nicole MD 3 [facility], [facility] [address] [place] [address] 07/01/2025 11:00 AM CLEARING DISTRIBUTION CLERK Office Visit [facility] Family & Internal Medicine [facility] [address] [place] [phone] Elizabeth Tello MD [address] [place] [address]. [address] [place] [id number] 11/07/2025 9:45 AM CDT Office Visit [place] [facility] [address] [place] [address] Topher Willis MD Three [facility]. [facility] [address] [place] [address] 02/14/2026 9:00 AM CDT Office Visit [facility] Pulmonology Specialty Clinic - [address] [phone] Hossein Ratliff MD 3rd [facility] [place] [address] [place] [address] documented as of this encounter Visit Diagnoses Not on filedocumented in this encounter Additional Health Concerns Assessment Noted Time PHQ-9 Depression Total Score: 3 10/13/19 21 11:58 AM CDT documented as of this encounter Care Teams Machinery Erector Relationship Specialty Start Date End Date Danny Castano MD PCP - General 06/19/15 08/13/22 [place] [address] [address] [place] [address] PCP - General FAMILY PRACTICE 08/14/22 documented as of this encounter
--- OUTSIDE RECORDS SUMMARY | 2025-06-14 11:02 | XMS_ITS | Encounter Summary ---
Author Organization [facility] Address [address] [place] [address] Care Team Providers Care Psychologist Name Role Phone Danny Castano MD Primary Care Provider U Elizabeth Ash MD Primary Care Provider [phone] Encounter Details Date Type Department Care Team (Late st Contact Info) Description 03/13/2022 PressConnectt Message Enc [facility] Medical Group Pulmonology Specialty Clinic [address] [address] Hossein Ratliff MD [address] [place] [address] Blood Test Social History Tobacco Use Types Packs/Day Years [...] Sex Assigned at Female 06/19/2018 10:09 AM ZMT OPERATOR Legal Sex Female 10:52 PM CDT Gender Identity Female 06/19/2018 10:09 AM ZMT OPERATOR Sexual Orientation Not on file COVID-19 Exposure Response Date Recorded In the last 10 days, have yo u been in contact with someone who was confirmed or suspected to have Coronavirus/COVID-19? No / Unsure 03/14/2022 9:28 AM CDT documented as of this encounter Plan of Treatment Upcoming Encounters Date Type Department Care Team (Late st Contact Info) Description 06/30/2025 10:00 AM ZMT OPERATOR Office Visit [facility]ialty Care - [facility] 3 [facility], [place] [address] [place] [address] Sofiya Nicole MD 3 [facility], [place] [address] [place] [address] 07/01/2025 11:00 AM ZMT OPERATOR Office Visit [facility] Family & Internal Medicine - [place] [address] [place] [address] Elizabeth Tello MD [address] [place] [address]. [address] [place] [address] 11/07/2025 9:45 AM CDT Office Visit [place] [facility]-[address] [phone] Topher Willis MD Three [facility]. [place] [address] [place] [address] 02/14/2026 9:00 AM CDT Office Visit [facility] Pulmonology Specialty Clinic - [address] [phone] Hossein Ratliff MD 3rd [facility] [place] [address] [place] [address] documented as of this encounter Visit Diagnoses Not on filedocumented in this encounter Additional Health Concerns Assessment Noted Time PHQ-9 Depression Total Score: 3 10/13/19 21 11:58 AM CDT documented as of this encounter Care Teams Psychologist Relationship Specialty Start Date End Date Danny Castano MD PCP - General 06/19/15 08/13/22 [place] [address] [facility]. [address] [place] [address] PCP - General FAMILY PRACTICE 08/14/22 documented as of this encounter
--- OUTSIDE RECORDS SUMMARY | 2025-06-14 11:02 | XMS_ITS | Encounter Summary ---
Author Organization [facility] Address [address] [place] [address] Care Team Providers Care Salesforce Specialist Name Role Phone Elizabeth Tello MD Primary Care Provider [phone] Encounter Details Date Type Department Care Team (Late st Contact Info) Description 11/12/2022 RF nano Message Enc [facility] Medical Group Family & Internal Medicine [address] [address] Sh[facility] Provider ozempic Social History Tobacco Use Types Packs/Day Years [...] Sex Assigned at Female 06/19/2018 10:09 AM OCCUPATIONAL HEALTH PHYSICIAN Legal Sex Female 10:52 PM CDT Gender Identity Female 06/19/2018 10:09 AM OCCUPATIONAL HEALTH PHYSICIAN Sexual Orientation Not on file COVID-19 Exposure Response Date Recorded In the last 10 days, have yo u been in contact with someone who was confirmed or suspected to have Coronavirus/COVID-19? No / Unsure 11/15/2022 8:53 AM CDT documented as of this encounter Plan of Treatment Upcoming Encounters Date Type Department Care Team (Late st Contact Info) Description 06/30/2025 10:00 AM OCCUPATIONAL HEALTH PHYSICIAN Office Visit [facility]ty Care - [facility] 3 [facility], [facility] [address] [place] [address] Sofiya Nicole MD 3 [facility], [facility] [address] [place] [address] 07/01/2025 11:00 AM OCCUPATIONAL HEALTH PHYSICIAN Office Visit [facility] Family & Internal Medicine [facility] [address] [place] [phone] [place] [address] [facility]. [address] [place], [place] [phone] 11/07/2025 9:45 AM CDT Office Visit [place] [facility] [address] [place] [phone] Topher Willis MD Three [facility]. [facility] [address] [place] [address] 02/14/2026 9:00 AM CDT Office Visit [facility] Pulmonology Specialty Clinic - [address] [phone] Hossein Ratliff MD [address] [place] [address] [address] [place] [address] documented as of this encounter Visit Diagnoses Not on filedocumented in this encounter Additional Health Concerns Assessment Noted Time PHQ-9 Depression Total Score: 3 10/13/19 21 11:58 AM CDT documented as of this encounter Care Teams Salesforce Specialist Relationship Specialty [place] [address] [address] [place] [address] PCP - General FAMILY PRACTICE 08/14/22 documented as of this encounter
--- OUTSIDE RECORDS SUMMARY | 2025-06-14 11:02 | XMS_ITS | Encounter Summary ---
Author Organization [facility] Address [address] [place] [address] Care Team Providers Care Water Resource Specialist Name Role Phone Elizabeth Tello MD Primary Care Provider [phone] Encounter Details Date Type Department Care Team ([facility] Contact Info) Description 09/12/2023 Seadev-FermenSys Message Enc [facility] Medical Group Family & Internal Medicine [facility] [address] [place] [address] [place]ello [place] [address] [place] [address]. [address] [place] [address] Acyclovir Social History Tobacco Use Types Packs/Day Years [...] Date Recorded Patient Health Questionnaire-2 Score 0 06/18/2023 Education Answer Date Recorded What is the highest level of school you have completed or the highest degree you have received? Some college, no degree 06/29/2018 Comments No Sex and Gender Information Value Date Recorded Sex Assigned at Female 06/19/2018 10:09 AM PREVENTION RN Legal Sex Female 10:52 PM CDT Gender Identity Female 06/19/2018 10:09 AM PREVENTION RN Sexual Orientation Not on file documented as of this encounter Plan of Treatment Upcoming Encounters Date Type Department Care Team ([facility] Contact Info) Description 06/30/2025 10:00 AM PREVENTION RN Office Visit [facility]ialty Care - [facility] 3 [facility], [facility] [address] [place] [address] Sofiya Nicole MD 3 [facility], [facility] [address] [place] [address] 07/01/2025 11:00 AM PREVENTION RN Office Visit [facility] Family & Internal Medicine - [place] [address] [place] [address] [place] [address] [facility]. [address] [place] [id number] 11/07/2025 9:45 AM CDT Office Visit [facility] [address] [place] [phone] Topher Willis MD Three [facility]. [facility] [address] [place] [address] 02/14/2026 9:00 AM CDT Office Visit [facility] Pulmonology Specialty Clinic - [address] [phone] Hossein Ratliff MD 3rd [facility] [address] [place] [address] documented as of this encounter Visit Diagnoses Not on filedocumented in this encounter Additional Health Concerns Assessment Noted Time PHQ-9 Depression Total Score: 3 10/13/19 21 11:58 AM CDT documented as of this encounter Care Teams Water Resource Specialist Relationship Specialty [place] [address] [facility]. [address] [place] [address] PCP - General FAMILY PRACTICE 08/14/22 documented as of this encounter
--- OUTSIDE RECORDS SUMMARY | 2025-06-14 11:02 | XMS_ITS | Encounter Summary ---
Author Organization [facility] Address [address] [place] [address] Care Team Providers Care Deli Worker Name Role Phone Elizabeth Tello MD Primary Care Provider Encounter Details Date Type Department Care Team ([facility] Contact Info) Description 02/07/2024 [facility] Message Enc [facility] Medical Group Family & Internal Medicine [facility] [address] [place] [address] Elizabeth [place]ello [place] [id number] [place] [address]. [address] [place] [address] Kyle Hernandez Social History Tobacco Use Types Packs/Day Years [...] Date Recorded Patient Health Questionnaire-2 Score 0 10/29/2023 Education Answer Date Recorded What is the highest level of school you have completed or the highest degree you have received? Some college, no degree 06/29/2018 Comments No Sex and Gender Information Value Date Recorded Sex Assigned at Female 06/19/2018 10:09 AM CABLE ARMORER Legal Sex Female 10:52 PM CDT Gender Identity Female 06/19/2018 10:09 AM CABLE ARMORER Sexual Orientation Not on file documented as of this encounter Plan of Treatment Upcoming Encounters Date Type Department Care Team ([facility] Contact Info) Description 06/30/2025 10:00 AM CABLE ARMORER Office Visit [facility] Mult[facility]ialty Care - [facility] 3 [facility], [facility] [address] [place] [address] Sofiya Nicole MD 3 [facility], [facility] [address] [place] [address] 07/01/2025 11:00 AM CABLE ARMORER Office Visit [facility] Family & Internal Medicine - [place] [address] [place] [address] [place] [address] [facility]. [address] [place] [id number] 11/07/2025 9:45 AM CDT Office Visit [place] [address] [place] [phone] Topher Willis MD Three [facility]. [facility] [address] [place] [address] 02/14/2026 9:00 AM CDT Office Visit [facility] Pulmonology Specialty Clinic - [address] [phone] Hossein Ratliff MD [address] [facility] [address] [place] [address] documented as of this encounter Visit Diagnoses Not on filedocumented in this encounter Additional Health Concerns Assessment Noted Time PHQ-9 Depression Total Score: 3 10/13/19 21 11:58 AM CDT documented as of this encounter Care Teams Deli Worker Relationship Specialty [place] [address] [facility]. [address] [place] [address] PCP - General FAMILY PRACTICE 08/14/22 documented as of this encounter
--- OUTSIDE RECORDS SUMMARY | 2025-06-14 11:02 | XMS_ITS | Encounter Summary ---
Author Organization [facility] Address [address] [place] [address] Care Team Providers Care Merchandise Complaint Adjuster Name Role Phone Danny Castano MD Primary Care Provider U Elizabeth Ash MD Primary Care Provider [phone] Encounter Details Date Type Department Care Team (Late st Contact Info) Description 04/30/2017 Abstract [facility] CONVERSION [address] [place] [address] , Generic ConversionMD Social History Tobacco Use Types Packs/Day Years Used Date Smoking Tobacco: Never Assessed Comments Unknown Sex and Gender Information Value Date Recorded Sex Assigned at Female 06/19/2018 10:09 AM TIPPLE BOSS Legal Sex Female 10:52 PM CDT Gender Identity Female 06/19/2018 10:09 AM TIPPLE BOSS Sexual Orientation Not on file documented as of this encounter Plan of Treatment Upcoming Encounters Date Type Department Care Team (Late Contact Info) Description 06/30/2025 10:00 AM TIPPLE BOSS Office Visit [facility] Multispecialty Care - [address] [phone] Sofiya Nicole MD [address] [place] [address] 07/01/2025 11:00 AM TIPPLE BOSS Office Visit [facility] Medical [facility] Family & Internal Medicine - [place] [address] [place] [phone] [place] [address] [address] [place] [address] 11/07/2025 9:45 AM CDT Office Visit [facility] [address] [place] [address] Topher Willis MD Three [facility]. [facility] [address] [place] [address] 02/14/2026 9:00 AM CDT Office Visit [facility] Medical Group Pulmonology Specialty Clinic - [address] [phone] Hossein Ratliff MD 3rd [facility] [address] [place] [address] documented as of this encounter Visit Diagnoses Not on filedocumented in this encounter Additional Health Concerns Infection Onset Date Last Indicated Resolved Time COVID-19 Rule Out 02/29/2020 02/29/2020 03/02/2020 2:26 AM CDT COVID-19 Rule Out 04/29/2020 04/29/2020 04/30/2020 7:11 PM TIPPLE BOSS COVID-19 Rule Out 04/21/2021 04/21/2021 04/22/2021 12:00 PM CDT documented as of this encounter Care Teams Merchandise Complaint Adjuster Relationship Specialty Start Date End Date Danny Castano MD PCP - General 06/19/15 08/13/22 [place] [address] [address] [place] [address] PCP - General FAMILY PRACTICE 08/14/22 documented as of this encounter
--- OUTSIDE RECORDS SUMMARY | 2025-06-14 11:02 | XMS_ITS | Encounter Summary ---
Author Organization [facility] Address [address] [place] [address] Care Team Providers Care Chemistry Laboratory Technician Name Role Phone Danny Castano MD Primary Care Provider U Elizabeth Ash MD Primary Care Provider [phone] Encounter Details Date Type Department Care Team (Late st Contact Info) Description 05/07/2018 Abstract [facility] Family & Internal Medicine [address] [address] Danny Castano MD Social History Tobacco Use Types Packs/Day Years Used Date Smoking Tobacco: Never Assessed Comments Unknown Sex and Gender Information Value Date Recorded Sex Assigned at Female 06/19/2018 10:09 AM CELL TUBER HAND Legal Sex Female 10:52 PM CDT Gender Identity Female 06/19/2018 10:09 AM CELL TUBER HAND Sexual Orientation Not on file documented as of this encounter Plan of Treatment Upcoming Encounters Date Type Department Care Team (Late Contact Info) Description 06/30/2025 10:00 AM CELL TUBER HAND Office Visit [facility] Multispecialty Care - [facility] 3 [facility], [facility] [address] [place] [address] Sofiya Nicole MD 3 [facility], [facility] [address] [place] [address] 07/01/2025 11:00 AM CELL TUBER HAND Office Visit [facility] Family & Internal Medicine - [place] [address] [place] [address] [place] [address] [facility]. [address] [place] [address] 11/07/2025 9:45 AM CDT Office Visit [facility] [address] [place] [phone] Topher Willis MD Three [facility]. [place] [address] [place] [address] 02/14/2026 9:00 AM CDT Office Visit [facility] Medical Group Pulmonology Specialty Clinic [address] [phone] Hossein Ratliff MD [address] [place] [address] [address] [place] [address] documented as of this encounter Visit Diagnoses Not on filedocumented in this encounter Additional Health Concerns Infection Onset Date Last Indicated Resolved Time COVID-19 Rule Out 02/29/2020 02/29/2020 03/02/2020 2:26 AM CDT COVID-19 Rule Out 04/29/2020 04/29/2020 04/30/2020 7:11 PM CELL TUBER HAND COVID-19 Rule Out 04/21/2021 04/21/2021 04/22/2021 12:00 PM CDT documented as of this encounter Care Teams Chemistry Laboratory Technician Relationship Specialty Start Date End Date Danny Castano MD PCP - General 06/19/15 08/13/22 [place] [address] [facility] [address] [place] [address] PCP - General FAMILY PRACTICE 08/14/22 documented as of this encounter
--- OUTSIDE RECORDS SUMMARY | 2025-06-14 11:02 | XMS_ITS | Encounter Summary ---
Author Organization [facility] Address [facility] [place] [address] Care Team Providers Care Slime Plant Operator Helper Name Role Phone Danny Castano MD Primary Care Provider U Elizabeth Ash MD Primary Care Provider [phone] Encounter Details Date Type Department Care Team (Late st Contact Info) Description 06/10/2021 [employer] Message [facility] [address] [place] [phone] Topher Willis MD [address] [address] Next appointment i May of 2022. Social History Tobacco Use Types Packs/Day Years [...] Sex Assigned at Female 06/19/2018 10:09 AM ORDER CHECKER PACKER PROCESSER Legal Sex Female 10:52 PM CDT Gender Identity Female 06/19/2018 10:09 AM ORDER CHECKER PACKER PROCESSER Sexual Orientation Not on file COVID-19 Exposure Response Date Recorded In the last month, have you been in contact with someone who was confirmed or suspected to have Coronavirus / COVID-19? No / Unsure 06/05/2021 9:51 AM ORDER CHECKER PACKER PROCESSER documented as of this encounter Plan of Treatment Upcoming Encounters Date Type Department Care Team (Late st Contact Info) Description 06/30/2025 10:00 AM ORDER CHECKER PACKER PROCESSER Office Visit [facility] Multispecialty Care - [facility] 3 [facility], [facility] [address] [place] [address] Sofiya Nicole MD 3 [facility], [facility] [address] [place] [address] 07/01/2025 11:00 AM ORDER CHECKER PACKER PROCESSER Office Visit [facility] Family & Internal Medicine - [place] [address] [place] [phone] Elizabeth Tello MD [address] [place] [address]. [address] [place] [address] 11/07/2025 9:45 AM CDT Office Visit [facility] [address] [place] [phone] Topher Willis MD Three [facility]. [address] [place] [address] 02/14/2026 9:00 AM CDT Office Visit [facility] Pulmonology Specialty Clinic - [address] [address] Hossein Ratliff MD 3rd [facility] [address] [place] [address] documented as of this encounter Visit Diagnoses Not on filedocumented in this encounter Additional Health Concerns Assessment Noted Time PHQ-9 Depression Total Score: 3 10/13/19 21 11:58 AM CDT documented as of this encounter Care Teams Slime Plant Operator Helper Relationship Specialty Start Date End Date Danny Castano MD PCP - General 06/19/15 08/13/22 [place] [address] [facility]. [address] [place], [place] [phone] PCP - General FAMILY PRACTICE 08/14/22 documented as of this encounter
--- OUTSIDE RECORDS SUMMARY | 2025-06-14 11:03 | XMS_ITS | Encounter Summary ---
Author Organization [facility] Address [address] [place] [address] Care Team Providers Care Roads And Parking Lots Sweeper Operator Name Role Phone Elizabeth Tello MD Primary Care Provider [phone] Encounter Details Date Type Department Care Team (Late st Contact Info) Description 09/21/[address] [facility] [address] [place] [phone] Topher Willis MD [address] [address] TEST RESULTS Social History Tobacco Use Types Packs/Day Years [...] Answer Date Recorded Patient Health Questionnaire-2 Score 1 09/15/2024 Education Answer Date Recorded What is the highest level of school you have completed or the highest degree you have received? Some college, no degree 06/29/2018 Comments No Sex and Gender Information Value Date Recorded Sex Assigned at Female 06/19/2018 10:09 AM COOPERATIVE EDUCATION COORDINATOR Legal Sex Female 10:52 PM CDT Gender Identity Female 06/19/2018 10:09 AM COOPERATIVE EDUCATION COORDINATOR Sexual Orientation Not on file documented as of this encounter Progress Notes * Jessie Dennis, DOUGH MIXER HELPER - 09/21/2024 2:55 PM CDT Patient is requesting an appointment with Dr. Willis * RICK Garcia - 09/21/2024 12:49 PM CDT Have her get a CMP and BNP this week then will go from there. Is primary getting a follow up CBC on her to trend the anemia? Not bleeding? Any new or worsening SOB, CP, cough, edema or weight gain? documented in this encounter Plan of Treatment Upcoming Encounters Date Type Department Care Team (Late st Contact Info) Description 06/30/2025 10:00 AM COOPERATIVE EDUCATION COORDINATOR Office Visit [facility] Multispecialty Care - [facility] 3 [facility], [facility] [address] [place] [address] Sofiya Nicole MD 3 [facility], [facility] [address] [place] [address] 07/01/2025 11:00 AM COOPERATIVE EDUCATION COORDINATOR Office Visit [facility] Family & Internal Medicine - [address] [address] Elizabeth Tello MD [address] [place] [address]. [address] [place], [place] [phone] 11/07/2025 9:45 AM CDT Office Visit [facility] [phone] Topher Willis MD Three [facility]. [address] [place] [address] 02/14/2026 9:00 AM CDT Office Visit [facility] [address] [address] Hossein Ratliff MD [address] [place] [address] documented as of this encounter Results * (ABNORMAL) PRO BNP ([facility]) (09/24/2024 10:46 AM CDT) PRO-B TYPE NATRIURETIC PEPTIDE 1,518(H) <450 PG/ML 09/24/2024 11:40 AM CDT [facility] Comment: CUT POINTS ESTABLISHED BY [employer]NATIONAL [employer] ON NT PROBNP (ICON) STUDY (2006). AGE INDEPENDENT: <300 PG/ML HAS A 99% NEGATIVE PREDICTIVE VALUE FOR EXCLUDING ACUTE CHF <50 YEARS: >450 PG/ML IS CONSISTENT WITH ACUTE CHF 50-75 YEARS: >900 PG/ML IS CONSISTENT WITH ACUTE CHF >75 YEARS: >1800 PG/ML IS CONSISTENT WITH ACUTE CHF IN PATIENTS WITH RENAL INSUFFICIENCY (GFR <60), >1200 PG/ML YIELDS A DIAGNOSTIC SENSITIVITY AND SPECIFICITY OF 89% AND 72% FOR ACUTE CHF. 09/24/2024 10:4 6 AM CDT us Topher Willis MD LABORATORY Final Resul t [facility] [address] [place] [address], * (ABNORMAL) COMPREHENSIVE METABOLIC PANEL (09/24/2024 10:46 AM CDT) GLUCOSE 147(H) 70 - 99 MG/DL 09/24/2024 11:40 AM CDT [facility] BUN 9 7 - 18 MG/DL 09/24/2024 11:40 AM CDT [facility] CREATININE S/P/B 1.26(H) 0.55 - 1.02 MG/DL 09/24/2024 11:40 AM [facility] SODIUM S/P/B 139 136 - 145 MMOL/L 09/24/2024 11:40 AM [facility] POTASSIUM S/P/B 2.9(LL) 3.5 - 5.1 MMOL/L 09/24/2024 11:40 AM [facility] Comment: Critical Result(s) Called at: 11:38:51 on 09/24/2024 by: Kristel Munoz to and read back by:SANJIV LANG @ [facility] CHLORIDE S/P/B 99(L) 100 - 108 MMOL/L 09/24/2024 11:40 AM [facility] CO2 26.3 21 - 32 MMOL/L 09/24/2024 11:40 AM [facility] CALCIUM S/P/B 9.3 8.5 - 10.1 MG/DL 09/24/2024 11:40 AM [facility] BILIRUBIN TOTAL S/P/B 0.6 0.2 - 1.2 MG/DL 09/24/2024 11:40 AM [facility] TOTAL PROTEIN S/P/B 7.5 6.4 - 8.2 G/DL 09/24/2024 11:40 AM [facility] ALBUMIN S/P/B 3.3(L) 3.4 - 5.0 G/DL 09/24/2024 11:40 AM [facility] AST 10(L) 15 - 37 U/L 09/24/2024 11:40 AM [facility] ALT 9(L) 14 - 55 U/L 09/24/2024 11:40 AM [facility] ALKALINE PHOSPHATASE S/P/B 150(H) 50 - 136 U/L 09/24/2024 11:40 AM CDT [facility] ANION GAP 13.7 5 - 15 MMOL/L 09/24/2024 11:40 AM CDT [facility] BUN CREATININE RATIO 7.1 6 - 26 09/24/2024 11:40 AM CDT [facility] A/G RATIO 0.8(L) 1.0 - 2.0 RATIO 09/24/2024 11:40 AM CDT [facility] GFR ESTIMATE 44(L) >90 ML/MIN/1.7 3 M2 09/24/2024 11:40 AM CDT [facility] Comment: NOTE: eGFR is not calculated for patients <18 years of age. This is an estimated GFR calculation using the new CKD EPI creatinine equation without race and so does not require a correction factor for race. This estimated GFR should not be used for calculating drug doses. 09/24/2024 10:4 6 AM CDT us Topher Willis MD LABORATORY Final Resul t [facility] [address] [place] [address], [place] [phone] documented in this encounter Visit Diagnoses Diagnosis Congestive heart failure, unspecified HF chronicity, unspecified heart failure type ([facility])- Primary documented in this encounter Additional Health Concerns Assessment Noted Time PHQ-9 Depression Total Score: 5 03/17/20 24 2:49 PM CDT documented as of this encounter Care Teams Roads And Parking Lots Sweeper Operator Relationship Specialty [place] [address] [address] [place] [address] PCP - General FAMILY PRACTICE 08/14/22 documented as of this encounter
--- OUTSIDE RECORDS SUMMARY | 2025-06-14 11:03 | XMS_ITS | Encounter Summary ---
Author Organization [facility] Address [address] [place] [address] Care Team Providers Care Institutional Research Coordinator Name Role Phone Elizabeth Tello MD Primary Care Provider [phone] Encounter Details Date Type Department Care Team (Late st Contact Info) Description 12/09/2024 [employer] Message [facility] [address] [place] [phone] Topher Willis MD [address] [address] [facility] Social History Tobacco Use Types Packs/Day Years [...] Sex Assigned at Female 06/19/2018 10:09 AM BORDER MEASURER Legal Sex Female 10:52 PM CDT Gender Identity Female 06/19/2018 10:09 AM BORDER MEASURER Sexual Orientation Not on file documented as of this encounter Plan of Treatment Upcoming Encounters Date Type Department Care Team (Late st Contact Info) Description 06/30/2025 10:00 AM BORDER MEASURER Office Visit [facility] Multispecialty Care - [facility] 3 [facility], [facility] [address] [place] [address] Sofiya Nicole MD 3 [facility], [facility] [address] [place] [address] 07/01/2025 11:00 AM BORDER MEASURER Office Visit [facility] Family & Internal Medicine - [place] [address] [place] [address] [place] [address] [facility]. [address] [place] [phone] 11/07/2025 9:45 AM CDT Office Visit [facility] [address] [place] [phone] Topher Willis MD Three [facility]. [facility] [address] [place] [address] 02/14/2026 9:00 AM CDT Office Visit [facility] Pulmonology Specialty Clinic - [address] [phone] Hossein Ratliff MD 3rd [facility] [address] [place] [address] documented as of this encounter Visit Diagnoses Not on filedocumented in this encounter Additional Health Concerns Assessment Noted Time PHQ-9 Depression Total Score: 5 03/17/20 24 2:49 PM CDT documented as of this encounter Care Teams Institutional Research Coordinator Relationship Specialty [place] [address] [facility]. [address] [place] [address] PCP - General FAMILY PRACTICE 08/14/22 documented as of this encounter
--- OUTSIDE RECORDS SUMMARY | 2025-06-14 11:03 | XMS_ITS | Encounter Summary ---
Author Organization [facility] Address [address] [place] [address] Care Team Providers Care Health Education Assistant Name Role Phone Elizabeth Tello MD Primary Care Provider [phone] Encounter Details Date Type Department Care Team (Latest Contact Info) Description 11/04/2024 [employer] Message [facility] [address] [place] [phone] Topher Willis MD [address] [address] Metoprolol ER and Spironolactone Social History Tobacco Use Types Packs/Day Years [...] Sex Assigned at Female 06/19/2018 10:09 AM SHIPPING ASSOCIATE Legal Sex Female 10:52 PM CDT Gender Identity Female 06/19/2018 10:09 AM SHIPPING ASSOCIATE Sexual Orientation Not on file documented as of this encounter Plan of Treatment Upcoming Encounters Date Type Department Care Team (Late st Contact Info) Description 06/30/2025 10:00 AM SHIPPING ASSOCIATE Office Visit [facility] Multispecialty Care - [facility] 3 [facility], [facility] [address] [place] [address] Sofiya Nicole MD 3 [facility], [facility] [address] [place] [address] 07/01/2025 11:00 AM SHIPPING ASSOCIATE Office Visit [facility] Family & Internal Medicine - [place] [address] [place] [phone] [place] [address] [facility]. [address] [place] [address] 11/07/2025 9:45 AM CDT Office Visit [facility] [address] [place] [phone] Topher Willis MD Three [facility]. [facility] [address] [place] [address] 02/14/2026 9:00 AM CDT Office Visit [facility] Pulmonology Specialty Clinic - [address] [phone] Hossein Ratliff MD [address] [facility] [address] [place] [address] documented as of this encounter Visit Diagnoses Not on filedocumented in this encounter Additional Health Concerns Assessment Noted Time PHQ-9 Depression Total Score: 5 03/17/20 24 2:49 PM CDT documented as of this encounter Care Teams Health Education Assistant Relationship Specialty [place] [address] [facility]. [address] [place] [address] PCP - General FAMILY PRACTICE 08/14/22 documented as of this encounter
--- OUTSIDE RECORDS SUMMARY | 2025-06-14 11:03 | XMS_ITS | Clinical Summary ---
Author Organization [facility] Address [address] [place] [address] Care Team Providers Care Threading Machine Setter Name Role Phone Elizabeth Tello MD Primary Care Provider [phone] Allergies Active Allergy Reactions Criticality Noted Date Comments Acetaminophen Other (see comment) Low 06/29/2015 Doesn't work for her General Anesthesia GI Upset Low 12/15/2019 Ibuprofen Nausea and Vomiting Low 01/26/2025 Nsaids Shortness of Breath High 03/02/2013 Prednisone GI Upset Low 12/15/2019 Propoxyphene GI Upset Low 08/07/2015 Sulfa Antibiotics Rash Low 03/02/2013 Medications aspirin EC 325 MG EC tablet Take 1 tablet (325 mg total) by mouth 2 (two) times a day. 6 Active traMADol (ULTRAM) 50 MG tablet 3 (three) times daily. 3 Active esomeprazole (NEXIUM) 20 MG capsuleIndicati ons:Gastroesoph ageal reflux disease without esophagitis Take 1 capsule (20 mg total) by mouth every morning before breakfast. 90 capsule 3 3 Active Additional Information Patient taking differently:20 mg Oral Every morning before breakfast,And 1 tab at night so BID, Reported on 05/09/2025 atorvastatin (LIPITOR) 40 MG tablet Take 1 tablet (40 mg total) by mouth every evening. 4 Active albuterol sulfate HFA (VENTOLIN HFA) 108 (90 Base) MCG/ACT inhalerIndicati ons:Environment al and seasonal allergies,Abnor mal PFT Inhale 2 puffs into the lungs every 6 (six) hours as needed for Wheezing. 18 g 2 4 Active traZODone (DESYREL) 50 MG tabletIndicatio ns:Primary insomnia TAKE 2 TABLETs( 100 MG) BY MOUTH EVERY NIGHT AT BEDTIME 180 tablet 3 5 Active oxybutynin XL (DITROPAN-XL) 5 MG 24 hr tabletIndicatio ns:Urinary urgency Take 1 tablet (5 mg total) by mouth daily. 30 tablet 5 5 Active spironolactone (ALDACTONE) 25 MG tabletIndicatio ns:Chronic heart failure with preserved ejection fraction (HFpEF) ([facility]/HCC) Take 0.5 tablets (12.5 mg total) by mouth daily. 90 tablet 1 5 Active Additional Information Patient taking differently: 25 mgOral Daily, Reported on 05/09/2025 metoprolol succinate ER (TOPROL-XL) 50 MG 24 hr tabletIndicatio ns:Chronic heart failure with preserved ejection fraction (HFpEF) ([facility] HHS/HCC) Take 0.5 tablets (25 mg total) by mouth daily. 30 tablet 5 Active acyclovir (ZOVIRAX) 800 MG tabletIndicatio ns:Herpes labialis TAKE 1 TABLET(800 MG) BY MOUTH DAILY 90 tablet 1 5 Active lidocaine (XYLOCAINE) 5 % ointmentIndicat ions:Generalize d joint pain APPLY A PEA SIZED AMOUNT TO KNEES AND BACK TWICE DAILY NEEDED 30 g 5 5 Active DULoxetine (CYMBALTA) 60 MG capsuleIndicati ons:Anxiety Take 1 capsule (60 mg total) by mouth daily. 30 capsule 11 5 Active DULoxetine (CYMBALTA) 30 MG capsuleIndicati ons:Anxiety Take 1 capsule (30 mg total) by mouth daily. 30 capsule 5 5 025 Discontin ued(Dose adjustmen t) Active Problems Problem Noted Date Diagnosed Date Chronic heart failure with p reserved ejection fraction (HFpEF) 05/20/2025 Stage 3a chronic kidney disease 10/30/2023 LULI on CPAP 02/10/2023 Lumbar disc herniation 02/05/2023 Levoscoliosis of cervical spine 02/05/2023 DDD (degenerative disc disease), cervical 2022 Parietal lobe infarction 02/05/2023 Spinal stenosis of lumbar re gion without neurogenic claudication 02/05/2023 Oropharyngeal dysphagia 08/26/2022 Overview (08/26/2022): Added automatically from request for surgery [id number] Vitamin D deficiency 02/28/2022 Morbid (severe) obesity due to excess calories 0 02/26/2022 S/P bilateral breast reduction 05/11/2021 Restrictive lung disease 11/21/2020 Hypokalemia 11/10/2020 BMI 39.0-39.9,adult 07/15/2020 Pulmonary hypertension 05/23/2020 Abnormal PFT 12/15/2019 Environmental and seasonal allergies 12/15/2019 Anxiety 10/28/2019 Shortness of breath on exertion 07/13/2019 Herpes labialis 05/19/2018 Vitamin B12 deficiency 07/28/2013 Arthritis, senescent 03/02/2013 Depression 03/02/2013 Gastroesophageal reflux dise ase, esophagitis presence not specified 03/02/2013 Primary hypertension 03/02/2013 Insomnia 03/02/2013 Resolved Problems Problem Noted Date Diagnosed Date Resolved Date Stage 3b chronic kidney disease 02/10/2023 10/30/2023 Need for immunization against influenza 03/26/2021 04/02/2021 Encounter for screening mamm ogram for breast cancer 11/10/2020 11/13/2020 Persistent cough 07/15/2020 11/10/2020 ILD (interstitial lung disease) 05/23/2020 11/21/2020 Hyperventilation syndrome 03/07/2020 Chronic bronchitis, unspecif ied chronic bronchitis type 12/15/2019 04/13/2020 Chronic cough 12/15/2019 04/13/2020 Hypotension, unspecified hypotension type 01/20/2019 02/11/2019 Fungal dermatitis 01/20/2018 07/17/2021 Breast hypertrophy in female 12/03/2017 07/17/2021 Hypercholesterolemia 05/02/2017 023 Back pain, chronic 11/13/2015 No contraindication to deep vein thrombosis (DVT) prophylaxis 08/07/2015 05/18/2019 Encounters Date Type Department Care Team Description 05/10/2025 Telephone [facility] - [place] [address] [place] [address] Elizabeth Tello MD Forms (/) 05/09/2025 2:00 PM TECHNICAL ACCOUNT MANAGER [facility] [address] [place] [phone] Topher Willis MD CHF; Aortic Valve Disorder; Hypertension 05/09/2025 Travel 03/25/2025 Results Follow-Up [facility] [address] [phone] Elizabeth Tello MD MAGNESIUM, CBC W/DIFF AUTOMATED, BASIC METABOLIC PANEL, Additional followed-up results: 2 03/24/2025 12:33 PM CDT - 03/24/2025 11:59 PM CDT Hospital Encounter [facility] [address] [place] [address] Elizabeth Tello MD Discharge Disposition: Home or Self Care (Routine Discharge) 03/24/2025 10:20 AM CDT Laboratory Only [facility] [address] [phone] Elizabeth Tello MD 03/24/2025 9:40 AM CDT Office Visit [facility] [address] [address] Elizabeth Tello MD Hyperlipidemia; Hypertension; Fall 03/24/2025 Travel from Last 3 Months Immunizations Immunization Administration Dates Next Due Arexvy Respiratory Syncytial Virus (RSV, adjuvanted) 0.5 mL, PF 04/09/2023 FLUAD (IIV, Trivalent, 0.5 M L Pre-filled Syringe) 04/12/2024 Fluzone High Dose - >Age 65 (Prefilled Syringe) 04/09/2022,04/26/2021,04/12/2020,2018,05/01/2017,04/23/2016,04/17/2015 Influenza (Generic) 04/08/2018, 6,05/16/2014,2012,04/20/2012 Influenza Adult (Generic) 04/09/2023,,04/13/2020,2018,04/09/2018,05/02/2017,04/23/2016,1 MODERNA COVID-19 (12+) MRNA, LNP-S, PF, 100 MCG/ 0.5 ML DOSE 04/26/2021,08/30/2020,08/02/2020 MODERNA COVID-19 ([place] [employer] [place]), MRNA, LNP-S, PF, 50 MCG/ 0.25 ML DOSE 02/13/2022 Pneumococcal (Pneumovax 23) 08/02/2015, 5 Pneumococcal (Prevnar 13) 05/01/2017 Shingrix 09/27/2020,04/12/2020 Td (Tenivac) preservative free 12/04/2002 Tdap (Generic) 11/30/2020 Zoster (Zostavax) [address] Unt/0.65Ml 11/27/2009 Family History Medical History Relation Comments Arthritis Father Heart Attack Father Open Heart Father Stroke Father Breast Cancer Maternal Aunt 50'S Cancer Maternal Aunt Cancer Maternal Grandfather Heart Attack Maternal Grandmother Cancer Maternal Uncle Cancer Mother Breast Cancer Other Stroke Paternal Grandfather Heart Attack Paternal Grandmother Hypertension Sister Relation Status Comments Father Maternal Aunt Maternal Grandfather Maternal Grandmother Maternal Uncle Mother Other Alive Paternal Grandfather Paternal Grandmother Sister Social History Tobacco Use Types Packs/Day Years Used Date Smoking Tobacco: Never Smokeless Tobacco: Never Tobacco Cessation:Counseling Given: No Alcohol Use Standard Drinks/Week Comments No 0 (1 standard drink = 0.6 oz pur e alcohol) AUDIT-C Answer Date Recorded Frequency of Alcohol Consumption Never 05/19/2018 Average Number of Drinks Not on file 018 Frequency of Binge Drinking Not on file 04/24 PHQ-2 Answer Date Recorded Patient Health Questionnaire-2 Score 0 02/08/2025 Education Answer Date Recorded What is the highest level of school you have completed or the highest degree you have received? Some college, no degree 06/29/2018 Comments No Sex and Gender Information Value Date Recorded Sex Assigned at Female 06/19/2018 10:09 AM TECHNICAL ACCOUNT MANAGER Legal Sex Female 10:52 PM CDT Gender Identity Female 06/19/2018 10:09 AM TECHNICAL ACCOUNT MANAGER Sexual Orientation Not on file Last Filed Vital Signs Vital Sign Reading Time Taken Comments Blood Pressure 104/60 05/09/2025 2:07 PM TECHNICAL ACCOUNT MANAGER Pulse 69 05/09/2025 2:07 PM TECHNICAL ACCOUNT MANAGER Temperature 36.6 C (97.9 F) 03/24/2025 9:50 AM CDT Respiratory Rate 18 03/24/2025 9:50 AM CDT Oxygen Saturation 96% 05/09/2025 2:07 PM TECHNICAL ACCOUNT MANAGER Inhaled Oxygen Concentration - - Weight 77.6 kg (171 lb) 05/09/2025 2:07 PM TECHNICAL ACCOUNT MANAGER p er patient Height 149.9 cm (4' 11) 05/09/2025 2:07 PM TECHNICAL ACCOUNT MANAGER Body Mass Index 34.54 05/09/2025 2:07 PM TECHNICAL ACCOUNT MANAGER Plan of Treatment Upcoming Encounters Date Type Department Care Team (Late st Contact Info) Description 06/30/2025 10:00 AM TECHNICAL ACCOUNT MANAGER Office Visit [facility] Multispecialty Care - [facility] 3 [facility], [place] [address] [place] [address] Sofiya Nicole MD 3 [facility], [place] [address] [place] [address] 07/01/2025 11:00 AM TECHNICAL ACCOUNT MANAGER Office Visit [facility] - [place] [address] [place] [phone] [place] [address] [facility]. [address] [place] [address] 11/07/2025 9:45 AM CDT Office Visit [facility] [phone] Topher Willis MD Three [facility]. [address] [place] [address] 02/14/2026 9:00 AM CDT Office Visit [facility] [address] [phone] Hossein Ratliff MD 3rd [facility] [address] [place] [address] Health Maintenance Due Date Last Done Comments Annual Medicare Wellness Visit 2013 Dexa Scan (General) 2013 COVID-19 Vaccine ( season) 2025 10/03/2023, 04/09/2023, 02/13/2022, Additional history exists Influenza Adult (#1) 2025 04/12/2024, 04/09/2023, 04/09/2022, Additional history exists DTaP, Tdap and Td Vaccines (2 - Td or Tdap) 11/30/2030 11/30/2020, 12/04/2002 Colorectal Cancer Screening Colonoscopy (10 Years) Discontinued 07/12/2016, 07/12/2016 Pneumococcal Vaccine: 50+ Years Completed 05/01/2017, 08/02/2015, 04/19/2015 Zoster Vaccines Completed 09/27/2020, 03/24, 11/27/2009 Hepatitis C Completed 09/17/2022 RSV Immunization or 60+ Years Completed 04/09/2023 PHQ-2 (Physician [place]) Completed 02/08/2025 Hepatitis A Vaccines Aged Out No long er eligible based on patient's age to complete this topic Meningococcal B Vaccine Aged Out No l onger eligible based on patient's age to complete this topic Meningococcal Vaccine Aged Out No pipo kesha eligible based on patient's age to complete this topic RSV Immunizations Under 20 Months Aged Out No longer eligible based on patient's age to complete this topic Procedures Procedure Name Priority Date/Time Associated Diagnosis Comments COLLECTION VENOUS BLOOD VENIPUNCTURE Routine 03/24/2025 10:29 AM CDT Subclinical hypothyroidism Dizziness HC T4 FREE Routine 03/24/2025 10:22 AM CDT TSH W/REFLEX Routine 03/24/2025 10:22 AM CDT Subclinical hypothyroidism HC BASIC METABOLIC PANEL Routine 03/24/2025 10:22 AM CDT Dizziness HC CBC AUTO W/AUTO DIFF Routine 03/24/2025 10:22 AM CDT Dizziness HC MAGNESIUM Routine 03/24/2025 10:22 AM CDT Dizziness HEPATITIS C ANTIBODY Routine 09/17/2022 12:07 PM CDT Positive BENJAMIN (antinuclear antibody) Lupus Screening for viral disease Neuropathy Fatigue Arthritis Hypomagnesemia Screening for diabetes mellitus Impaired glucose tolerance test Vitamin D deficiency Vitamin B12 deficiency Encounter for therapeutic drug monitoring COLONOSCOPY Routine 07/12/2016 12:00 AM TECHNICAL ACCOUNT MANAGER from Last 3 Months or Most Recently Relevant to Health Maintenance Results * (ABNORMAL) TSH W/REFLEX (03/24/2025 10:22 AM CDT) TSH 5.024(H) 0.358 - 3.74 uIU/ML 03/24/2025 2:21 PM CDT [facility] Comment: HIGH DOSES OF BIOTIN MAY INTERFERE WITH THIS TEST RESULT. CORRELATION TO CLINICAL HISTORY AND PRESENTATION RECOMMENDED. 03/24/2025 10:2 2 AM CDT us Elizabeth Tello MD LABORATORY Final Result [facility] [address] [place] [address], [place] [phone] * (ABNORMAL) BASIC METABOLIC PANEL (03/24/2025 10:22 AM CDT) GLUCOSE 105(H) 70 - 99 MG/DL 03/24/2025 2:21 PM CDT [facility] BUN 16 7 - 18 MG/DL 03/24/2025 2:21 PM T [facility] CREATININE S/P/B 1.48(H) 0.55 - 1.02 MG/DL 03/24/2025 2:21 PM T [facility] SODIUM S/P/B 138 136 - 145 MMOL/L 03/24/2025 2:21 PM T [facility] POTASSIUM S/P/B 4.5 3.5 - 5.1 MMOL/L 03/24/2025 2:21 PM T [facility] CHLORIDE S/P/B 104 100 - 108 MMOL/L 03/24/2025 2:21 PM T [facility] CO2 22.6 21 - 32 MMOL/L 03/24/2025 2:21 PM T [facility] CALCIUM S/P/B 9.1 8.5 - 10.1 MG/DL 03/24/2025 2:21 PM T [facility] ANION GAP 11.4 5 - 15 MMOL/L 03/24/2025 2:21 PM [facility] BUN CREATININE RATIO 10.8 6 - 26 03/24/2025 2:21 PM [facility] GFR ESTIMATE 36(L) >90 ML/MIN/1.7 3 M2 03/24/2025 2:21 PM T [facility] Comment: NOTE: eGFR is not calculated for patients <18 years of age. This is an estimated GFR calculation using the new CKD EPI creatinine equation without race and so does not require a correction factor for race. This estimated GFR should not be used for calculating drug doses. 03/24/2025 10:2 2 AM CDT us Elizabeth Tello MD LABORATORY Final Result [facility] [address] [place] [address], [place] [phone] * (ABNORMAL) CBC W/DIFF AUTOMATED (03/24/2025 10:22 AM CDT) [facility] WBC 10.44 4.4 - 11.0 x10'3/uL 03/24/2025 1:33 PM CDT [facility] RBC 4.16(L) 4.50 - 5.10 x10'6/uL 03/24/2025 1:33 PM CDT [facility] HGB 13.2 12.3 - 15.3 G/DL 03/24/2025 1:33 PM CDT [facility] HCT 40.3 35.9 - 44.6 % 03/24/2025 1:33 PM CDT [facility] MCV 96.9(H) 80.0 - 96.0 FL 03/24/2025 1:33 PM CDT [facility] MCH 31.7(H) 25.3 - 30.9 PG 03/24/2025 1:33 PM CDT [facility] MCHC 32.8 31.0 - 34.1 G/DL 03/24/2025 1:33 PM CDT [facility] RDW 13.7 12.4 - 15.1 % 03/24/2025 1:33 PM CDT [facility] PLT 284 151 - 353 x10'3/uL 03/24/2025 1:33 PM CDT [facility] MPV 10.8 9.6 - 12.0 FL 03/24/2025 1:33 PM T [facility] RBC MORPHOLOGY NORMAL 03/24/2025 1:33 PM CDT [facility] PLT MORPH. NORMAL 03/24/2025 1:33 PM CDT [facility] WBC MORPHOLOGY NORMAL 03/24/2025 1:33 PM CDT [facility] LYMPHOCYTES % 17.8 15.8 - 45.0 % 03/24/2025 1:33 PM CDT [facility] NEUTROPHILS % 70.5 42.1 - 71.9 % 03/24/2025 1:33 PM CDT [facility] MONOCYTES % 8.0 5.7 - 12.5 % 03/24/2025 1:33 PM CDT [facility] EOSINOPHILS 2.1 0.0 - 5.6 % 03/24/2025 1:33 PM CDT [facility] BASOPHILS 1.0 0.0 - 1.3 % 03/24/2025 1:33 PM CDT [facility] ABS. NEUTROPHILS 7.36(H) 1.40 - 6.00 x10'3/uL 03/24/2025 1:33 PM CDT [facility] IMMATURE GRANS % 0.6(H) 0.0 - 0.5 % 03/24/2025 1:33 PM CDT [facility] ABS. LYMPHOCYTES 1.86 0.80 - 4.70 x10'3/uL 03/24/2025 1:33 PM T [facility] 03/24/2025 10:2 2 AM CDT us Elizabeth Tello MD LABORATORY Final Result [facility] [address] [place] [address], * THYROXINE, FREE (FT4) (03/24/2025 10:22 AM CDT) FREE T4 0.87 0.76 - 1.46 NG/DL 03/24/2025 3:47 PM CDT [facility] 03/24/2025 10:2 2 AM CDT us Elizabeth Tello MD LABORATORY Final Result Performing Organization Address [facility]/ZIP Co de Phone Number [facility] [address] [place] [address], [place] [phone] * (ABNORMAL) MAGNESIUM (03/24/2025 10:22 AM CDT) MAGNESIUM 1.7(L) 1.8 - 2.4 MG/DL 03/24/2025 2:21 PM CDT [facility] 03/24/2025 10:2 2 AM CDT us Elizabeth Tello MD LABORATORY Final Result Performing Organization Address [facility] Co de Phone Number [facility] [address] [place] [address], [place] [phone] * HEPATITIS C ANTIBODY (09/17/2022 12:07 PM CDT) HEPATITIS C AB NON-REACTI VE NON-REACTI VE 09/17/2022 7:56 PM CDT [facility] 09/17/2022 12:0 7 PM CDT us Alondra Fritz MD LABORATORY Final Result Performing Organization Address City/[facility]/ZIP Co de Phone Number [facility] [address] [place] [address], [place] [phone] * Colonoscopy (07/12/2016 12:00 AM TECHNICAL ACCOUNT MANAGER) 07/12/2016 07/12/2016 Narrative [facility] TO EPIC CONVERSION - 07/12/2016 12:00 AM TECHNICAL ACCOUNT MANAGER Documented hx of procedure Procedure Note Keith Ferguson, - 04/26/2018 Documented hx of procedure us Generic Conversion Md [facility] PROCEDURE ORDERABLES Final Result [facility] TO EPIC CONVERSION from Last 3 Months or Most Recently Relevant to Health Maintenance Insurance MEDICARE [facility] MEDICARE Care Teams Threading Machine Setter Relationship Specialty [place] [address] [address] [place] [address] PCP - General FAMILY PRACTICE 08/14/22
--- OUTSIDE RECORDS SUMMARY | 2025-06-14 11:03 | XMS_ITS | Encounter Summary ---
Author Organization [facility] Address [address] [place] [address] Care Team Providers Care Legal Administrative Secretary Name Role Phone Danny Castano MD Primary Care Provider U Elizabeth Ash MD Primary Care Provider [phone] Encounter Details Date Type Department Care Team (Late st Contact Info) Description 10/11/2021 [employer] Message Enc [facility] Family & Internal Medicine [address] [phone] Danny Castano MD Health Fair Social History Tobacco Use Types Packs/Day Years [...] Sex Assigned at Female 06/19/2018 10:09 AM ADVANCED REGISTERED NURSE Legal Sex Female 10:52 PM CDT Gender Identity Female 06/19/2018 10:09 AM ADVANCED REGISTERED NURSE Sexual Orientation Not on file COVID-19 Exposure Response Date Recorded In the last 10 days, have yo u been in contact with someone who was confirmed or suspected to have Coronavirus/COVID-19? No / Unsure 10/10/2021 8:45 AM CDT documented as of this encounter Plan of Treatment Upcoming Encounters Date Type Department Care Team (Late st Contact Info) Description 06/30/2025 10:00 AM ADVANCED REGISTERED NURSE Office Visit [facility] Multispecialty Care - [facility] 3 [facility], [facility] [address] [place] [address] Sofiya Nicole MD 3 [facility], [facility] [address] [place] [address] 07/01/2025 11:00 AM ADVANCED REGISTERED NURSE Office Visit [facility] Family & Internal Medicine [place] [id number] [place] [phone] Elizabeth Tello MD [address] [place] [address] 11/07/2025 9:45 AM CDT Office Visit [facility] [address] [phone] Topher Willis MD Three [facility]. [facility] [address] [place] [address] 02/14/2026 9:00 AM CDT Office Visit [facility]ty [facility] - [address] [phone] Hossein Ratliff MD 3rd [facility] [address] [place] [address] documented as of this encounter Visit Diagnoses Not on filedocumented in this encounter Additional Health Concerns Assessment Noted Time PHQ-9 Depression Total Score: 3 10/13/19 21 11:58 AM CDT documented as of this encounter Care Teams Legal Administrative Secretary Relationship Specialty Start Date End Date Danny Castano MD PCP - General 06/19/15 08/13/22 [place] [address] [address] [place] [address] PCP - General FAMILY PRACTICE 08/14/22 documented as of this encounter
--- OUTSIDE RECORDS SUMMARY | 2025-06-14 11:03 | XMS_ITS | Encounter Summary ---
Author Organization [facility] Address [address] [place] [address] Care Team Providers Care Police Academy Instructor Name Role Phone Elizabeth Tello MD Primary Care Provider [phone] Encounter Details Date Type Department Care Team (Late Contact Info) Description 05/17/2024 [employer] Message [email or web address] HEALTH INFORMATION MANAGEMENT [address] [place] [address] [employer] [place], [facility] Provider Proxy Access Social History Tobacco Use Types Packs/Day Years [...] Answer Date Recorded Patient Health Questionnaire-2 Score 2 03/17/2024 Education Answer Date Recorded What is the highest level of school you have completed or the highest degree you have received? Some college, no degree 06/29/2018 Comments No Sex and Gender Information Value Date Recorded Sex Assigned at Female 06/19/2018 10:09 AM TEXTILE SLITTING MACHINE OPERATOR Legal Sex Female 10:52 PM CDT Gender Identity Female 06/19/2018 10:09 AM TEXTILE SLITTING MACHINE OPERATOR Sexual Orientation Not on file documented as of this encounter Plan of Treatment Upcoming Encounters Date Type Department Care Team (Late Contact Info) Description 06/30/2025 10:00 AM TEXTILE SLITTING MACHINE OPERATOR Office Visit [facility] Multispecialty Care - [facility] 3 [facility], [address] [address] Sofiya Nicole MD 3 [facility], [facility] [address] [place] [address] 07/01/2025 11:00 AM TEXTILE SLITTING MACHINE OPERATOR Office Visit [facility] Family & Internal Medicine - [place] [address] [place] [phone] [place] [address] [facility]. [address] [place] [address] 11/07/2025 9:45 AM CDT Office Visit [facility] [address] [place] [address] Topher Willis MD Three [place]. [address] [place] [address] 02/14/2026 9:00 AM CDT Office Visit [facility] Pul[facility]ology Specialty Clinic - [address] [phone] Hossein Ratliff MD 3rd [facility] [address] [place] [address] documented as of this encounter Visit Diagnoses Not on filedocumented in this encounter Additional Health Concerns Assessment Noted Time PHQ-9 Depression Total Score: 5 03/17/20 24 2:49 PM CDT documented as of this encounter Care Teams Police [employer] Instructor Relationship Specialty Start [place] [address] [facility]. [address] [place] [address] PCP - General FAMILY PRACTICE 08/14/22 documented as of this encounter
[2025-06-14 11:51] LABS: Anion Gap 12 mmol/L (4-12); Blood Urea Nitrogen 20 mg/dL (7-17); Calcium 9.6 mg/dL (8.4-10.2); Carbon Dioxide 18 mmol/L (22-30); Chloride 108 mmol/L (98-107); Estimated Glomerular Filt Rate 37; Glucose 79 mg/dL (65-110); Potassium 4.5 mmol/L (3.4-5.0); Sodium 138 mmol/L (137-145)
[2025-06-14 12:55] LABS: Vitamin B12 464.0 pg/mL (239-931)
== END 2025-06-14 10:22 | disposition home or self-care (01) ==
PROVIDERS: PCP Internal Medicine; Visit Provider Internal Medicine Hematology & Oncology
DX: D64.9 Anemia, unspecified (principal)
CPT/HCPCS: 36415; 80048; 82607; 82746; 85025